=== PATIENT | male | born 1945 | race Caucasian/White ===

== ENCOUNTER 2017-11-15 07:09 | Outpatient (CLI) | payer MEDICARE, OTHER | END 2017-11-15 07:10 | disposition home or self-care (01) | LOC: BICMRI 07:09 | PROVIDERS: ATTEND Specialist | DX: S46.012A Strain of muscle(s) and tendon(s) of the rotator cuff of left shoulder, initial encounter (principal); S46.212A Strain of muscle, fascia and tendon of other parts of biceps, left arm, initial encounter; S43.082A Other subluxation of left shoulder joint, initial encounter; S43.432A Superior glenoid labrum lesion of left shoulder, initial encounter; M19.012 Primary osteoarthritis, left shoulder ==

== ENCOUNTER 2017-11-27 10:09 | Observation (INO) | payer MEDICARE, OTHER ==
[2017-11-27 11:04] LABS: #Lymphocytes 1.4 thou/uL (1.20-3.40); #Monocytes 1.3 thou/uL (0.11-0.59); #Neutrophils 6.4 thou/uL (1.40-6.50); %Basophils 0.5 % (0.0-1.0); %Eosinophils 0.1 % (0.0-10.0); %Lymphocytes 15.5 % (21.0-51.0); %Monocytes 14.4 % (0.0-10.0); %Neutrophils 69.6 % (42.0-75.0); Hemoglobin 11.9 g/dL (14.0-18.0); Mean Corpuscular HGB CONC 34.2 g/dL (32.0-36.0); Mean Corpuscular Hemoglobin 30.7 pg (27.0-31.0); Mean Corpuscular Volume 89.8 fl (80.0-94.0); Platelet Count 128 thou/uL (130-400); RBC Distribution Width 15.5 % (11.5-14.5); Red Blood Cell (RBC) Count 3.88 mill/uL (4.70-6.10); White Blood Cell (WBC) Count 9.1 thou/uL (4.8-10.8)
[2017-11-27 11:25] LABS: CKMB 1.7 ng/mL (0-6.6); Troponin I 0.051 ng/mL (< 0.028)
--- NOTE | 2017-11-27 11:25 | RAD ---
FRONTAL RADIOGRAPH CHEST: Date: 11-27-2017 Comparison: 10-04-03 History: Seizure-like activity, hypotension. FINDINGS: The heart and mediastinal contours are within normal limits. There is no pneumothorax, pleural fluid, focal consolidation or alveolar edema. There is atherosclerotic calcification of the aortic arch. Ca lcified nodes are noted in the left hilar region, evidence of prior granulomatous disease. IMPRESSION: No acute findings. POS: [facility]
[2017-11-27 11:32] LABS: ALT (SGPT) 24 U/L (8-55); AST (SGOT) 29 U/L (5-34); Albumin 3.6 g/dL (3.4-4.8); Alkaline Phosphatase 126 U/L (40-150); Anion Gap 14 mmol/L (10-20); BUN (Urea Nitrogen) 23 mg/dL (8.4-25.7); Bilirubin, Total 1.4 mg/dL (0.2-1.2); CK (CPK) 71 U/L (30-200); Calc. Creatinine Clearance 0 mL/min (70-130); Calcium 9.6 mg/dL (7.8-10.44); Carbon Dioxide 27 mmol/L (23-31); Chloride 94 mmol/L (98-107); Estimated GFR-MDRD 34; Globulin 3.1 g/dL (2.4-3.5); Glucose 131 mg/dL (83-110); Potassium 3.8 mmol/L (3.5-5.1); Protein, Total 6.7 g/dL (5.8-8.1); Sodium 131 mmol/L (136-145)
[2017-11-27 12:41] LABS: INR-International Normal Ratio 1.2; PTT 50.8 SEC (22.9-36.1)
--- NOTE | 2017-11-27 12:53 | CT ---
CT BRAIN WITHOUT CONTRAST: Indication: Seizure-like activity at home with hypotension. Comparison: None. FINDINGS: There is mild generalized cerebral atrophy. No definite acute infarct, hemorrhage, or hydrocephalus i s present. There is mild chronic small vessel white matter ischemic change. Septum pellucidum and thi rd ventricle are midline. There is prominent opacification of the visualized ethmoid air cells and sp henoid sinus with air fluid levels within the ethmoid air cells and sphenoid sinus. There is partial effusion seen involving the left mastoid air cells. IMPRESSION: 1. No acute intracranial abnormality. 2. Findings suspicious for acute sinusitis of the ethmoid air cells and sphenoid sinus. 3. Partial effusion involving the left mastoid air cells. POS: [facility]
[2017-11-27] MEDS ORDERED: Aspirin 325 MG TAB ONE (13:54)
[2017-11-27 14:40] LABS: Troponin I 0.036 ng/mL (< 0.028)
[2017-11-27] MEDS ORDERED: Albuterol Sulfate 2.5 mg/3 ml Neb NEB PRN (16:27)
--- NOTE | 2017-11-27 16:31 | HP ---
ATTENDING PHYSICIAN: Flaquito Weathers M.D. DATE OF SERVICE: 11/27/2017 REASON FOR ADMISSION: Fall. HISTORY OF PRESENT ILLNESS: This is a 72-year-old gentleman with a history of multiple medical probl ems to include COPD, NIDDM, and hypertension. He was brought in today after his witnessed a "fall." The is not at bedside and all the in formation was obtained from the . The patient states he does not remember having any chest pa in, shortness of breath or palpitations. The only thing he remembers that he woke up on the floor. The patient did not want to be taken by ambulance, but later he was brought into the hospital by his . The told me the thought he had a seizure. The patient denies any syncope before; however, he did recently fall on 11/13/2017 at which that time he injured his left shoulder and the MRI did show a rotator cuff tear. He does see Dr. Brown and denies any recent chest, arm or back pain, also denies any recent synco pal or near syncopal episode. PAST MEDICAL HISTORY: 1. COPD, followed by Dr. Plummer. 2. NIDDM. 3. Hypertension. 4. PVD. 5. BPH, followed by Dr. Schmidt. 6. History of Pernicious anemia. 7. History of thrombocytopenia. 8. Dyslipidemia. 9. Gout. 10. Arthritis. 11. GERD. 12. Hypothyroidism. PAST SURGICAL HISTORY: 1. PVD with stent in the left leg. 2. Hip replacement to the left in 2008. 3. Rotator cuff surgery in 1998. 4. Right knee surgery in 1995. 5. Back surgery in 1990. ALLERGIES: None. MEDICATIONS: 1. Levothyroxine 137 mcg daily. 2. Valsartan 160 mg every day. 3. Atenolol 25 mg every day. 4. Protonix 40 mg every day. 5. Cilostazol 100 mg 2 daily for leg cramps. 6. Diclofenac 50 mg 2 every day. 7. Allopurinol 300 mg every day. 8. Atorvastatin 10 mg every day. 9. Tamsulosin 0.4 every day. 10. Aspirin 81 mg every day. 11. [place] 10/325 as needed. SOCIAL HISTORY: He does smoke a pack a day and has done so for 50 years. FAMILY HISTORY: Positive for coronary artery disease in mother. REVIEW OF SYSTEMS: General: No weight gain or weight loss. Admits to weakness, fatigue, no fever o r chills. HEENT: No diplopia, amaurosis fugax, tinnitus, sore throat or hoarseness. Cardiovascular : No chest, arm or back pain. Pulmonary: Does have dyspnea from his COPD. The patient is coughing up some yellow sputum. GI: No GI bleed, does have constipation, no diarrhea. Genitourinary: No d ysuria, nocturia, oliguria or polyuria. Endocrine: No polyphagia, polydipsia or heat or cold intole mis. Musculoskeletal: Admits to arthralgias. No lupus or myopathy. Neurologic: No history of T IA or seizure. All systems are negative. PHYSICAL EXAMINATION: GENERAL: Pleasant gentleman who appears to be in no acute distress. VITAL SIGNS: Blood pressure 120/70, heart rate 58, respirations 26. He is afebrile. NECK: Supple with no increased JVP or carotid bruit. Carotid had good upstroke with no thyromegaly. COR: Elmer rhythm, no murmur. CHEST: Scattered wheezing. ABDOMEN: Soft, nontender with normoactive bowel sounds. No bruit or organomegaly. EXTREMITIES: No edema or cyanosis. Palpable pedal pulses. SKIN: There is no evidence of ulceration, lesion, or rash. NEURO: He is awake, alert, and oriented to person, place, and time. LABORATORY DATA: Showed a normal prolactin. His creatinine was 1.5. His sodium was 131. A CT of t he head was normal. ASSESSMENT: 1. Syncope, questionable etiology. 2. History of peripheral vascular disease with stent in the past. 3. Hypertension. 4. Hyperlipidemia. 5. Diabetes. 6. Chronic obstructive pulmonary disease. 7. Multiple medical problems. PLAN: 1. The patient will be placed in the hospital where echocardiogram and carotid Doppler will be obtai audra. 2. We will ask Dr. Brown to see the patient in consultation. 3. Tobacco use. 4. Possible early bronchitis. PLAN: 1. We will also start an antibiotic for possible early bronchitis. 2. We will follow up with lab in the morning. 3. Further recommendations per cardiology. The patient verbalized understanding and all questions answered to satisfaction.
[2017-11-27 17:54] VITALS: BMI 32.9
[2017-11-27 18:04] LABS: Troponin I 0.025 ng/mL (< 0.028)
--- NOTE | 2017-11-27 18:43 | CON ---
DATE OF CONSULTATION: 11/27/2017. REASON FOR CONSULTATION: Syncope. PRIMARY SENIOR INFORMATION SECURITY ANALYST: Dr. Brown. HISTORY OF PRESENT ILLNESS: Mr. Wisdom is a pleasant 72-year-old white gentleman who comes to the ospital for syncopal spell. He was at home sitting down and suddenly just noticed he rolled his eyes, started shaking like he was having a seizure then he went limp and went down to the floor. Robert anaya went to his side and was about to call 911 and when he came back and woke up and told her not to ca ll 911, attempted to try to get up again got on his four on both legs and arms and just had a second syncopal spell, fell forward. At that point, EMS was called. By the time they got to him, he was al ready awake. He just laid there awaiting for them to come in to bring him. He was taken to the ER a nd admitted for further evaluation. He has never had episodes like this before, but his tells steven anaya that recently she has noted that he is sitting on the couch and he falls asleep very quickly. Mr. Wisdom tells me that in the last few months he has noted episodes of feeling like he is closed to pa ssing out and he checks his blood pressure, has been about 60/40. He has also noted that at times hi s blood pressure goes up to the 180s/100s. He has never felt lightheaded when he stands up. PAST MEDICAL HISTORY: 1. Chronic obstructive pulmonary disease followed by Dr. Plummer. 2. Type 2 diabetes. 3. Hypertension. 4. Peripheral vascular disease with previous stenting on his left superficial femoral artery. 5. Benign prostatic hypertrophy. 6. Pernicious anemia. 7. Thrombocytopenia. 8. Hyperlipidemia. 9. Gout. 10. Arthritis. 11. Gastroesophageal reflux disease. 12. Hypothyroidism. PAST SURGICAL HISTORY: 1. Stent to the left leg. 2. Hip replacement. 3. Rotator cuff surgery. 4. Right knee surgery. 5. Back surgery. OUTPATIENT MEDICATIONS: 1. Levothyroxine 137 mcg a day. 2. Valsartan 160 mg a day. 3. Atenolol 25 mg a day. 4. Protonix 40 mg a day. 5. Cilostazol. 6. Diclofenac. 7. Allopurinol. 8. Atorvastatin 10 mg a day. 9. Tamsulosin. 10. Aspirin 81 a day. 11. Wayne p.r.n. ALLERGIES: No known drug allergies. SOCIAL HISTORY: Smokes a pack a day for the last 50 years, continues to smoke. FAMILY HISTORY: Positive for coronary artery disease in mother. REVIEW OF SYSTEMS: A 12 point review of systems is done and is all negative unless stated in the his tory of present illness. PHYSICAL EXAMINATION: VITAL SIGNS: Temperature 97.3, pulse 66, respiratory rate 20, satting 97% on 2 liters, blood pressur e 110/66. GENERAL: Awake, alert, oriented x3, in no distress. HEENT: Normocephalic. There is a small erythema on his forehead from the fall. NECK: Supple, no JVD. LUNGS: Clear with reduced breath sounds. CARDIOVASCULAR: S1, S2, no S3, S4 or murmurs. ABDOMEN: Soft, positive bowel sounds. EXTREMITIES: No edema. SKIN: Warm and dry. LABORATORY WORK: Reviewed. Hematology with a white count of 9.1, hemoglobin 11.9, hematocrit 34, pl atelet count of 128. Coags were unremarkable. Chemistry with a sodium of 131, potassium 3.8, chlori de of 94, carbon dioxide 27, anion gap of 14, BUN of 23, creatinine is 1.96, which is above his basel ine around 1.2 to 1.3. Troponin I was 0.05 and 0.03. CK-MB is normal. Prolactin was normal. Album in of 3.6. EKG was reviewed, normal sinus rhythm, no ischemic changes. CT of the brain was unremarkable. Chest x-ray was unremarkable. ASSESSMENT AND PLAN: 1. Syncope: Concern for cardiac arrhythmia. Continue to monitor her on telemetry. We will get an echocardiogram. He had one recently in May of this year, he was told everything looked fine. We wi ll also get a carotid ultrasound, agree with this. We will get a stress test, he has not had one in the last year he thinks and there is a concern for ischemic arrhythmias. We will do a Lexiscan MPI g iven his history of multiple joint issues and chronic obstructive pulmonary disease. 2. If all these studies are unremarkable, he will need to have placement of an event monitor as an o utpatient. I would favor an implantable loop recorder more than an event monitor. We will discuss w dannie Brown, his primary contact lens polisher to try to schedule this as an outpatient before he leaves . Thank you for letting us to participate in the care of your patient. We will continue to follow.
[2017-11-27] MEDS ORDERED: HYDROcodone/Acetaminophen 10/325 mg Tablet PO PRN (19:27)
[2017-11-27] MEDS: Cefdinir 300 MG CAP PO SCH (20:23)
[2017-11-27] MEDS: Cilostazol 100 MG TAB PO SCH (20:23)
[2017-11-27] MEDS ORDERED: Atorvastatin Calcium 10 MG TAB PO SCH (21:00)
[2017-11-27] MEDS ORDERED: Tamsulosin HCl 0.4 MG CAP PO SCH (21:00)
[2017-11-27] MEDS ORDERED: Allopurinol 300 MG TAB PO SCH (21:00)
--- NOTE | 2017-11-27 22:34 | ULT ---
EXAM: CAROTID ULTRASOUND 11/27/17 HISTORY: Syncope. COMPARISON: None. TECHNIQUE: Carney scale, color flow, doppler imaging with spectral waveform analysis performed of the carotid vert ebral arteries. FINDINGS: RIGHT CAROTID: Calcified atherosclerotic disease in the right carotid bulb. Peak systolic velocity of the common car otid artery is 98 cm/s. Peak systolic velocity of the internal carotid artery is 81 cm/s. Systolic IC A to CCA ratio is 0.83. LEFT CAROTID: Large focus of noncalcified plaque in the left carotid bifurcation and proximal internal carotid philip ry. Peak systolic velocity of the common carotid artery is 112.9 cm/s. Peak systolic velocity of the internal carotid artery is 94.8 cm/s. Systolic ICA to CCA ratio is 0.84. Antegrade flow in both vertebral arteries. IMPRESSION: No sonographic evidence of hemodynamically significant stenosis. However, there does appear to be a l arge focus of noncalcified plaque in the left carotid bifurcation and proximal left internal carotid artery. Better interrogation with CT angiogram of the neck is recommended. POS: [facility]
[2017-11-28] MEDS: Cefdinir 300 MG CAP PO SCH (05:27)
[2017-11-28] MEDS: Cilostazol 100 MG TAB PO SCH (05:28)
[2017-11-28 05:39] LABS: ALT (SGPT) 26 U/L (8-55); AST (SGOT) 28 U/L (5-34); Albumin 3.3 g/dL (3.4-4.8); Alkaline Phosphatase 117 U/L (40-150); Anion Gap 13 mmol/L (10-20); BUN (Urea Nitrogen) 23 mg/dL (8.4-25.7); Calc. Creatinine Clearance 75 mL/min (70-130); Calcium 9.3 mg/dL (7.8-10.44); Carbon Dioxide 26 mmol/L (23-31); Chloride 97 mmol/L (98-107); Estimated GFR-MDRD 55; Globulin 3.2 g/dL (2.4-3.5); Glucose 95 mg/dL (83-110); Potassium 3.5 mmol/L (3.5-5.1); Protein, Total 6.5 g/dL (5.8-8.1); Sodium 132 mmol/L (136-145)
[2017-11-28] MEDS ORDERED: Levothyroxine Sodium 112 MCG TAB PO SCH (06:00)
[2017-11-28] MEDS ORDERED: Levothyroxine Sodium 75 MCG TAB PO SCH (06:00)
[2017-11-28] MEDS ORDERED: Levothyroxine Sodium 25 MCG TAB PO SCH (06:00)
[2017-11-28] MEDS ORDERED: FLU VACC TS2017-18 (>65YR) 0.5 ML SYRINGE IM ONE (09:00)
[2017-11-28] MEDS ORDERED: Atenolol 25 MG TAB PO SCH (09:00)
[2017-11-28] MEDS ORDERED: Aspirin 325 MG TAB PO SCH (09:00)
[2017-11-28] MEDS ORDERED: Valsartan 80 MG TAB PO SCH ×2 (09:00)
[2017-11-28] MEDS ORDERED: Regadenoson 0.4 MG/5 ML SYRINGE ONE (11:13)
--- NOTE | 2017-11-28 11:34 | NM ---
CARDIAC SPECT: HISTORY: Syncope. COPD. Peripheral vascular disease. Hypertension. Diabetes. Dyslipidemia. Smoker. TECHNIQUE: A myocardial perfusion scan was performed using the single isotope one-day protocol with technetium 9 9m sestamibi, and 9 millicuries was injected intravenously for the rest exam, followed by 27 millicur ies for the stress study. Pharmacologic stress with Lexiscan was monitored and interpreted by Dr. Geneva galo. FINDINGS: Homogeneous tracer distribution is seen in the myocardial segments on stress and rest images without fixed or reversible defects. GATED SPECT LVEF: 56% WALL MOTION EXAM: Normal. IMPRESSION: Normal myocardial perfusion scan. POS: [facility]
[2017-11-28 12:27] VITALS: BP 128/60; TEMP 97.5
--- NOTE | 2017-11-29 11:22 | DIS ---
CHIEF COMPLAINT ON ADMISSION: A fall. He has had syncope of unsure etiology. He is known to have peripheral vascular disease and COPD, so he was placed in a telemetry bed for further evaluation. Cardiology was asked to see him in consultation. Dr. Raza saw him and saw a concern for possible cardiac arrhythmia. Continued him on telemetry. A stress test was ordered, the patient 's local general production laborer is Dr. Brown. A carotid Doppler study was obtained that showed no sonographic evidence of significant stenosis. An echocardiogram obtained showed an ejection fraction of 60-65%, mildly dilated left atrium, mild annular calcification, aortic valve is sclerotic with mild to moderate tricuspid regurgitation and moderate pulmonic regurgitation. A Cardiolite stress test done on 11/27/2017 showed no definitive diagnosis such that a stress nuclear test followed up on 11/28/2017 showed normal wall motion, normal myocardial scan and the patient was then able to be discharged home that day for further workup with Dr. Brown on outpatient basis. DISCHARGE DIAGNOSES: 1. Syncope of unknown etiology, 2. peripheral vascular disease, 3. hypertension, 4. hyperlipidemia, 5. diabetes and 6. chronic obstructive pulmonary disease. He is discharged in stable condition. The time required to check the chart, evaluate the patient, answer all his questions, reconcile his medication and prepare the chart for dictation and discharge came to 45 minutes. He will be continued on daily 81 mg aspirin and his other routine medications. He is discharged in stable condition. F/u will be in 1-[address] [facility]
--- NOTE | 2017-12-03 10:46 | STRESS ---
Acquisition Time: 2017-11-28 09:16:02 Total Exercise Time: 00:01:00 Test Indications: Syncope Medications: Protocol: LEXISCAN Max HR: 080 BPM 54% of Pred: 146 BPM Max BP: 122/060 mmHG Max Work Load: 1.0 METS RESTING ECG: SINUS BRADYCARDIA AT 56 BPM WITH NON-SPECIFIC T-WAVE CHANGES SYMPTOMS: DYSPNEA NORMAL BP RESPONSE ECTOPY: RARE PVC'S ECG STRESS: NO SIGNIFICANT CHANGES INTERPRETATION: AWAIT NUCLEAR IMAGES FOR DEFINITIVE DIAGNOSIS Confirmed by ZAID PENA ([id number]), social media editor JIM HUFFMAN ([id number]) on 12/03/2017 10:45:49 AM Referred By: MD Naseem PALOMO Confirmed By:ZAID PENA
--- NOTE | 2018-01-05 19:20 | EKG ---
Test Reason : Blood Pressure : / mmHG Vent. Rate : 059 BPM Atrial Rate : 059 BPM P-R Int : 132 ms QRS Dur : 086 ms QT Int : 446 ms P-R-T Axes : 075 052 071 degrees QTc Int : 441 ms Sinus bradycardia Otherwise normal ECG Artifact Confirmed by ALPHONSO HERR, HIGINIO Estrada ([id number]), editorial intern DEV BLANKENSHIP ([id number]) on 01/05/2018 7:20:27 PM Referred By: Confirmed By:HIGINIO WERNER MD
== END 2017-11-28 14:26 | disposition home or self-care (01) ==
LOC: ERS 10:09 → 2SW 13:58
PROVIDERS: ADMIT Specialist; ATTEND Specialist
DX: R55 Syncope and collapse (principal); I10 Essential (primary) hypertension; E78.5 Hyperlipidemia, unspecified; J44.9 Chronic obstructive pulmonary disease, unspecified; N40.0 Benign prostatic hyperplasia without lower urinary tract symptoms; M10.9 Gout, unspecified; M19.90 Unspecified osteoarthritis, unspecified site; K21.9 Gastro-esophageal reflux disease without esophagitis; E03.9 Hypothyroidism, unspecified; E11.51 Type 2 diabetes mellitus with diabetic peripheral angiopathy without gangrene; F17.210 Nicotine dependence, cigarettes, uncomplicated; Z79.82 Long term (current) use of aspirin; Z79.1 Long term (current) use of non-steroidal anti-inflammatories (NSAID); Z95.828 Presence of other vascular implants and grafts; Z96.642 Presence of left artificial hip joint; Z98.890 Other specified postprocedural states; Z91.81 History of falling
CPT/HCPCS: 70450; 71045; 78452; 80053 ×2; 82550; 82553; 84146; 84443; 84484 ×2; 85025; 85610; 85730; 86850 ×2; 86900; 86901; 87804 ×2; 93005; 93017; 93306; 93880; 94760; 96360; 99285; 99406; A9500; G0378; 36415; J2785

== ENCOUNTER 2018-05-23 10:32 | Outpatient (CLI) | payer MEDICARE, OTHER ==
[2018-05-23 12:05] LABS: #Basophils 0.1 thou/uL (0.0-0.2); #Lymphocytes 1.6 thou/uL (1.20-3.40); #Monocytes 0.5 thou/uL (0.11-0.59); #Neutrophils 1.8 thou/uL (1.40-6.50); %Basophils 1.6 % (0.0-1.0); %Eosinophils 0.6 % (0.0-10.0); %Lymphocytes 39.4 % (21.0-51.0); %Monocytes 11.7 % (0.0-10.0); %Neutrophils 46.6 % (42.0-75.0); Bilirubin Negative (Negative); Blood, Urine Negative (Negative); Clarity CLEAR (Clear); Glucose, Urine (Dipstick) Negative (Negative); Hemoglobin 12.8 g/dL (14.0-18.0); Leukocyte Negative (Negative); Mean Corpuscular HGB CONC 33.4 g/dL (32.0-36.0); Mean Corpuscular Hemoglobin 29.7 pg (27.0-31.0); Mean Corpuscular Volume 88.8 fL (78.0-98.0); Mean Platelet Volume 10.4 fL (7.4-10.4); Nitrite Negative (Negative); Platelet Count 124 thou/uL (130-400); Protein, Urine (Dipstick) Negative (Neg-Trace); RBC Distribution Width 16.2 % (11.5-14.5); Red Blood Cell (RBC) Count 4.32 mill/uL (4.70-6.10); Specific Gravity, Urine 1.017 (1.002-1.036); Urobilinogen 0.2 mg/dL (0.2-1.0); White Blood Cell (WBC) Count 3.9 thou/uL (4.8-10.8); pH, Urine 5.5 (5.0-9.0)
[2018-05-23 12:06] LABS: Bacteria/HPF None Seen HPF (None Seen); Hyaline Casts/LPF 7-10 HYALINE CAST LPF (0-3 Hyaline); Pathc Cast-AUWi Flag 2.47 (0-2.49); RBC/HPF 0-3 HPF (0-3); Squamous Epithelial 0-3 HPF (0-3); WBC/HPF 0-3 HPF (0-3)
[2018-05-23 12:13] LABS: INR-International Normal Ratio 1.1; Prothrombin Time 14.3 SEC (12.0-14.7)
--- NOTE | 2018-05-23 12:31 | RAD ---
TWO VIEWS CHEST: Comparison: 11-27-17 History: Pre-operative radiograph. FINDINGS: Two views of the chest show normal sized cardiomediastinal silhouette. There is no evidence of consol idation, mass, or pleural effusion. The bones are unremarkable. IMPRESSION: No evidence of acute cardiopulmonary disease. POS: [facility]
[2018-05-23 12:43] LABS: Anion Gap 12 mmol/L (10-20); BUN (Urea Nitrogen) 18 mg/dL (8.4-25.7); Calc. Creatinine Clearance 0 mL/min (70-130); Calcium 9.5 mg/dL (7.8-10.44); Carbon Dioxide 27 mmol/L (23-31); Chloride 103 mmol/L (98-107); Estimated GFR-MDRD 60; Glucose 106 mg/dL (83-110); Potassium 4.6 mmol/L (3.5-5.1); Sodium 137 mmol/L (136-145)
== END 2018-05-23 10:33 | disposition home or self-care (01) ==
LOC: LABBT 10:32
PROVIDERS: ATTEND Orthopaedic Surgery
DX: Z01.818 Encounter for other preprocedural examination (principal); M17.12 Unilateral primary osteoarthritis, left knee
CPT/HCPCS: 71046; 80048; 81001; 85025; 85610; 85730; 86850; 86870; 86900; 86901; 86905; 87081; 93005; 93010

== ENCOUNTER 2018-05-28 07:39 | Inpatient (IN) | payer MEDICARE, OTHER ==
[2018-05-23 11:01] VITALS: BMI 29.2
[2018-05-28] MEDS ORDERED: Sodium Chloride 0.9% 100 ML ONE (08:27)
[2018-05-28] MEDS ORDERED: CEFAZOLIN/Water 2 GM/20 ML SYRINGE ONE (08:27)
[2018-05-28] MEDS ORDERED: Vancomycin HCl 1.5 GM in Sodium Chloride 0.9% 250 ML 300 ML IVPB SCH (08:45)
[2018-05-28] MEDS ORDERED: Promethazine HCl 25 MG/ML VIAL IM PRN ×3 (08:51→10:38)
[2018-05-28] MEDS ORDERED: Acetaminophen 325 MG TAB PO PRN (08:51)
[2018-05-28] MEDS ORDERED: traMADol HCl 50 MG TAB PO PRN ×2 (08:51→09:32)
[2018-05-28] MEDS ORDERED: Fentanyl 100 MCG/2 ML VIAL SLOW IVP PRN ×2 (08:51)
[2018-05-28] MEDS ORDERED: HYDROcodone/Acetaminophen 10/325 mg Tablet PO PRN ×2 (08:51)
[2018-05-28] MEDS ORDERED: Ondansetron HCl/PF 4 MG/2 ML Vial IVP PRN ×3 (08:51→10:38)
[2018-05-28] MEDS ORDERED: diphenhydrAMINE 25 MG CAP PO PRN (08:51)
[2018-05-28] MEDS ORDERED: Zolpidem Tartrate 5 MG TAB PO PRN ×2 (08:51→09:32)
[2018-05-28] MEDS ORDERED: Midazolam HCl 2 mg/2 ml Vial ONE (08:54)
[2018-05-28] MEDS ORDERED: CEFAZOLIN/Water 2 GM/20 ML SYRINGE SLOW IVP SCH (09:00)
[2018-05-28] MEDS ORDERED: Cilostazol 100 MG TAB PO SCH (09:00)
[2018-05-28] MEDS ORDERED: Ketorolac Tromethamine 30 MG/ML VIAL IVP PRN (09:32)
[2018-05-28] MEDS ORDERED: Ropivacaine HCl/PF 250 ML in Premix Bag 1 BAG NERVE BLCK SCH (09:32)
[2018-05-28] MEDS ORDERED: Fentanyl 100 MCG/2 ML VIAL IV PRN (09:34)
[2018-05-28] MEDS ORDERED: Promethazine HCl 25 MG/ML VIAL SLOW IVP PRN (10:38)
[2018-05-28] MEDS ORDERED: Ropivacaine 0.5% HCl/PF (150 MG/30 ML VIAL) ONE (11:19)
[2018-05-28] MEDS ORDERED: Bupivacaine 0.25% HCL 30 ML VIAL ONE (11:19)
[2018-05-28] MEDS ORDERED: PROPOFOL 200 MG/20 ML VIAL ONE (11:42)
[2018-05-28] MEDS ORDERED: Ondansetron HCl/PF 4 MG/2 ML Vial ONE (11:42)
[2018-05-28] MEDS ORDERED: Lidocaine 1% PF 5 ML VIAL ONE (11:42)
[2018-05-28] MEDS ORDERED: ePHEDrine/0.9% NaCl/PF SYRINGE 50 mg/10 ml ONE (11:42)
--- NOTE | 2018-05-28 12:12 | OP ---
PREOPERATIVE DIAGNOSIS: Left knee arthritis. POSTOPERATIVE DIAGNOSIS: Left knee arthritis. SURGEON: Tung Burns M.D. METER ENGINEER: Dennis Gutiérrez PA-C. BLOOD LOSS: 200 mL. SPECIMEN: None. DRAINS: None. COMPLICATIONS: None. PROCEDURE PERFORMED: Left total knee arthroplasty using [place] Triathlon 5 femur, 5 tibia, 9 mm CS X3 polyethylene and A32 patella. TOURNIQUET TIME: Zero. PROCEDURE IN DETAIL: After informed consent was obtained in the preoperative holding area. The abhinav ent was taken to the operative suite where general anesthesia was induced. Once adequate level of ge neral anesthesia was obtained, the patient was positioned and a well-padded tourniquet was placed carlos und the left proximal thigh. The left lower extremity was then prepped and draped in the usual steri le fashion. Prior to exsanguination, a time out was called and all members of the surgical team agre ed upon site, surgeon, and patient. The extremity was then exsanguinated and the tourniquet was rais ed. A midline longitudinal incision was then made directly over the patella extending two fingerbrea dths above the superior pole of the patella and two fingerbreadths inferior to the inferior patellar pole of the patella. Deeper subcutaneous layers were dissected sharply and local bleeding was contro lled with Bovie electrocautery. A quad tendon longitudinal split was then made sharply and a median parapatellar arthrotomy was carried out both sharp and with Bovie electrocautery, carried down to one fingerbreadth medial to the tibial tubercle. The knee was then placed into flexion and the patella was everted nicely, and a copious fat pad ectomy was performed allowing for greater exposure of the t ibia. The computer-assisted distal femoral fiducial was then placed and pinned firmly, and the dista l femoral cutting guide was pinned firmly into place. The oscillating saw was then used to remove th e appropriate amount of bone. The 4-in-1 cutting block was then placed on the distal femur and the o scillating saw was used to remove the appropriate amount of bone off of the anterior, posterior, and chamfer cuts. After completion of bone cuts, the anterior cruciate ligament was resected sharply and the posterior cruciate ligament retractor was placed and the tibia was subluxed for better exposure. Partial meniscectomies were carried out, and the tibial computer-assisted fiducial was pinned, and the cutting guide was placed. Oscillating saw was then used to remove the bone with Hohmann retracto rs used to take care and protect the collateral ligaments. After the tibial resection was performed, a laminar alliances consultant was placed in between the freshened bone cuts. The knee placed at 90 degrees and further bilateral meniscectomies were carried out, and the curved osteotome and curettage was used t o remove any excess bone spurs in the posterior compartment. The trial femoral component, tibial bas eplate were placed with the appropriate polyethylene trial insert with an appropriate polyethylene sp acer and patellar button. The knee was taken through full range of motion with flexion and extension from 0-90 degrees and patellar broach squarely in the trochlea without any squinting or subluxation noted. The knee was also stable to varus and valgus stressing at 0, 15, 45, and 90 degrees of flexio n. The drawer was negative. All trial components were then removed and the keel punch was used to p rovide the appropriate defect in the tibia with a mallet. The freshened bone cuts were copiously irr igated with pulsatile lavage of about 1-1/2 liters to remove all excess debris. The freshened bone c uts were then dried and with suction and lap sponge. The knee was placed in flexion and retractors w ere placed to provide access to all bone cuts. Tobramycin impregnated methyl methacrylate cement was then placed on the freshened bone cuts and implants which were malleted firmly into place. Curettag e and [place] elevators were used to remove any excess bone cement. The knee was placed into full exte nsion and the patellar button was placed under compression, and the cement was allowed to cure. Once completed, the components were again taken through full range of motion and copious irrigation of th e knee was carried out with another liter of normal saline. All components were inspected fully with full range of motion and varus and valgus stressing. There was no laxity noted and full extension wa s observed clinically. Primary closure was accomplished with #2 interrupted Vicryl stitch of the art hrotomy defect. This was oversewn with a #2 running Quill barbed stitch. The gravitational platelet system was then injected into the arthrotomy prior to closure. The subcutaneous layer was then clos ed with a running 0 barbed Monocryl stitch and skin closure accomplished with a running subcuticular 3-0 Monocryl barbed Quill stitch and augmented with cement on the skin. Tourniquet was lowered. Goo d spontaneous return of distal pulses was noted clinically and a sterile dressing was applied to the incision. The procedure was terminated without any complications. The patient was awakened in the o perative suite and the tourniquet was removed, and the patient was taken to the recovery room in stab le condition.
--- NOTE | 2018-05-28 12:59 | RAD ---
LEFT KNEE 2 VIEWS: HISTORY: Total knee arthroplasty, postop exam. FINDINGS/IMPRESSION: There are postop changes of recent total knee arthroplasty in good position and alignment. Soft tiss ue air is present. There are vascular calcifications and stent in the thigh. POS: [facility]
[2018-05-28] MEDS ORDERED: Ketorolac Tromethamine 30 MG/ML VIAL IM SCH (14:00)
[2018-05-28] MEDS: HYDROcodone/Acetaminophen 10/325 mg Tablet PO PRN (14:26)
[2018-05-28] MEDS: Atenolol 25 MG TAB PO SCH (14:35)
[2018-05-28] MEDS: Aspirin 81 mg Enteric Coated Tablet PO SCH ×2 (14:35→20:26)
[2018-05-28] MEDS: Valsartan 80 MG TAB PO SCH (14:36)
[2018-05-28] MEDS: Sodium Chloride 0.9% 1,000 ML IV SCH ×2 (14:36→15:18)
[2018-05-28] MEDS: CEFAZOLIN/Water 2 GM/20 ML SYRINGE SLOW IVP SCH (18:35)
[2018-05-28] MEDS: Allopurinol 300 MG TAB PO SCH (20:26)
[2018-05-28] MEDS: Atorvastatin Calcium 10 MG TAB PO SCH (20:26)
[2018-05-29] MEDS: HYDROcodone/Acetaminophen 10/325 mg Tablet PO PRN ×4 (01:48→21:54)
[2018-05-29] MEDS: CEFAZOLIN/Water 2 GM/20 ML SYRINGE SLOW IVP SCH (01:49)
[2018-05-29] MEDS: Sodium Chloride 0.9% 1,000 ML IV SCH ×2 (03:22→09:53)
[2018-05-29] MEDS: traMADol HCl 50 MG TAB PO PRN (05:14)
[2018-05-29] MEDS: Levothyroxine Sodium 125 MCG TAB PO SCH (05:14)
[2018-05-29 06:21] LABS: Hemoglobin 10.6 g/dL (14.0-18.0); Mean Corpuscular HGB CONC 33.5 g/dL (32.0-36.0); Mean Corpuscular Hemoglobin 30.1 pg (27.0-31.0); Mean Corpuscular Volume 89.8 fL (78.0-98.0); Mean Platelet Volume 11.9 fL (7.4-10.4); Platelet Count 111 thou/uL (130-400); RBC Distribution Width 15.8 % (11.5-14.5); Red Blood Cell (RBC) Count 3.53 mill/uL (4.70-6.10)
--- NOTE | 2018-05-29 08:04 | PRG ---
DATE OF SERVICE: 05/29/2018. SUBJECTIVE: Nirav is a 72-year-old male postop day #1 left total knee arthroplasty. He has no com plaints. He is resting comfortably. OBJECTIVE: VITAL SIGNS: Temperature 98.1, pulse 65, respiratory rate 16, blood pressure 120/66. GENERAL: He is alert and oriented to person, place, time, and situation. Grossly nonfocal. EXTREMITIES: Incision is clean and closed. No strike through. He is neurovascularly intact in the involved extremity. Hemoglobin and hematocrit 10.6 and 31.7. ASSESSMENT: 1. A 72-year-old male postop day #1 left total knee arthroplasty, doing well. 2. Mild postoperative asymptomatic hemorrhagic anemia. PLAN: Continue current care and discharge home tomorrow.
[2018-05-29] MEDS: Ferrous Gluconate 324 MG TAB PO SCH ×2 (08:21→16:55)
[2018-05-29] MEDS: Senokot S 8.6-50 MG TAB PO SCH ×2 (08:22→20:24)
[2018-05-29] MEDS: Multivitamin W/ Minerals 1 TAB PO SCH (08:22)
[2018-05-29] MEDS: Valsartan 80 MG TAB PO SCH (08:22)
[2018-05-29] MEDS: Atenolol 25 MG TAB PO SCH (08:22)
[2018-05-29] MEDS: Aspirin 81 mg Enteric Coated Tablet PO SCH ×2 (08:22→20:24)
[2018-05-29] MEDS: Allopurinol 300 MG TAB PO SCH (20:24)
[2018-05-29] MEDS: Atorvastatin Calcium 10 MG TAB PO SCH (20:25)
[2018-05-30] MEDS: Sodium Chloride 0.9% 1,000 ML IV SCH ×2 (00:28→11:18)
[2018-05-30] MEDS: Levothyroxine Sodium 125 MCG TAB PO SCH (05:40)
[2018-05-30 06:37] LABS: Hemoglobin 9.7 g/dL (14.0-18.0); Mean Corpuscular HGB CONC 35.1 g/dL (32.0-36.0); Mean Corpuscular Volume 88.2 fL (78.0-98.0); Mean Platelet Volume 10.4 fL (7.4-10.4); Platelet Count 87 thou/uL (130-400); RBC Distribution Width 15.5 % (11.5-14.5); Red Blood Cell (RBC) Count 3.12 mill/uL (4.70-6.10); White Blood Cell (WBC) Count 7.4 thou/uL (4.8-10.8)
[2018-05-30] MEDS: Senokot S 8.6-50 MG TAB PO SCH (08:24)
[2018-05-30] MEDS: Atenolol 25 MG TAB PO SCH (08:25)
[2018-05-30] MEDS: Ferrous Gluconate 324 MG TAB PO SCH (08:25)
[2018-05-30] MEDS: Valsartan 80 MG TAB PO SCH (08:26)
[2018-05-30] MEDS: Aspirin 81 mg Enteric Coated Tablet PO SCH (08:26)
[2018-05-30] MEDS: Multivitamin W/ Minerals 1 TAB PO SCH (08:26)
[2018-05-30] MEDS ORDERED: Cilostazol 100 MG TAB PO SCH (09:00)
[2018-05-30] MEDS: traMADol HCl 50 MG TAB PO PRN (11:14)
[2018-05-30 11:56] VITALS: BP 140/69; TEMP 97.6
[2018-05-30] MEDS: HYDROcodone/Acetaminophen 10/325 mg Tablet PO PRN (14:13)
== END 2018-05-30 14:20 | disposition home or self-care (01) | DRG 470 ==
LOC: SDC 07:39 → SURG B 13:04
PROVIDERS: ADMIT Orthopaedic Surgery; ATTEND Orthopaedic Surgery
PROC: 0SRD0J9 Replacement of Left Knee Joint with Synthetic Substitute, Cemented, Open Approach (ICD-10-PCS; principal; 2018-05-28)
DX: M17.12 Unilateral primary osteoarthritis, left knee (principal); D62 Acute posthemorrhagic anemia
CPT/HCPCS: 36415; 85027; 86850; 86900; 86901; 86922; C1713; C1776; G8978-GP-CK; G8979-GP-CI; J2001; J2250; J2405; J2704; J2795; J3010; J3370; J7050; S0020

== ENCOUNTER 2018-07-11 08:42 | Outpatient (CLI) | payer MEDICARE, OTHER ==
[2018-07-11 10:21] LABS: Hemoglobin 10.7 g/dL (14.0-18.0); Mean Corpuscular HGB CONC 35.4 g/dL (32.0-36.0); Mean Corpuscular Hemoglobin 30.6 pg (27.0-31.0); Mean Corpuscular Volume 86.5 fL (78.0-98.0); Mean Platelet Volume 11.1 fL (7.4-10.4); Platelet Count 118 thou/uL (130-400); RBC Distribution Width 15.3 % (11.5-14.5); Red Blood Cell (RBC) Count 3.51 mill/uL (4.70-6.10); White Blood Cell (WBC) Count 3.2 thou/uL (4.8-10.8)
[2018-07-11 10:31] LABS: Anion Gap 10 mmol/L (10-20); BUN (Urea Nitrogen) 17 mg/dL (8.4-25.7); Calc. Creatinine Clearance 0 mL/min (70-130); Calcium 9.3 mg/dL (7.8-10.44); Carbon Dioxide 28 mmol/L (23-31); Chloride 104 mmol/L (98-107); Estimated GFR-MDRD 75; Glucose 125 mg/dL (83-110); Potassium 3.5 mmol/L (3.5-5.1); Sodium 138 mmol/L (136-145)
[2018-07-11 12:45] LABS: Band 6 % (5-11); Burr Cells SLIGHT = 2-5 cells (100X) (0-1/hpf); Eosinophils 2 % (0-10); Lymphocytes 41 % (21-51); MDiff Complete? YES; Monocytes 6 % (0-10); Neutrophil 38 % (42-75); Ovalocytes MODERATE= 6-15 cells (100X) (0-1/hpf); PLT Morphology Comment Appears Decreased; Polychromasia SLIGHT = 2-3 cells (100X) (0-2/hpf); Reactive Lymphocytes 7 % (0-10)
[2018-07-11 14:27] LABS: Bilirubin Small (Negative); Blood, Urine Negative (Negative); Clarity CLEAR (Clear); Glucose, Urine (Dipstick) Negative (Negative); Leukocyte Negative (Negative); Nitrite Negative (Negative); Protein, Urine (Dipstick) Negative (Neg-Trace); Specific Gravity, Urine 1.026 (1.002-1.036); pH, Urine 5.5 (5.0-9.0)
[2018-07-11 14:30] LABS: Bacteria/HPF None Seen HPF (None Seen); Hyaline Casts/LPF 0-3 HYALINE CAST LPF (0-3 Hyaline); Pathc Cast-AUWi Flag 0.14 (0-2.49); Squamous Epithelial 0-3 HPF (0-3); WBC/HPF 0-3 HPF (0-3)
== END 2018-07-11 08:43 | disposition home or self-care (01) ==
LOC: LABBT 08:42
PROVIDERS: ATTEND Orthopaedic Surgery Hand Surgery
DX: Z01.812 Encounter for preprocedural laboratory examination (principal); M85.68 Other cyst of bone, other site
CPT/HCPCS: 80048; 81001; 85025

== ENCOUNTER 2018-08-06 12:09 | Outpatient (CLI) | payer MEDICARE, OTHER | END 2018-08-06 12:10 | disposition home or self-care (01) | LOC: CP 12:09 | PROVIDERS: ATTEND Internal Medicine | DX: J44.9 Chronic obstructive pulmonary disease, unspecified (principal); G47.33 Obstructive sleep apnea (adult) (pediatric) | CPT/HCPCS: 94060; 94727; 94729 ==

== ENCOUNTER 2018-09-04 10:09 | Day surgery (SDC) | payer MEDICARE, OTHER ==
[2018-09-03 12:03] VITALS: BMI 28.4
[2018-09-04 11:39] LABS: Hemoglobin 12.2 g/dL (14.0-18.0)
[2018-09-04 12:00] LABS: Anion Gap 12 mmol/L (10-20); BUN (Urea Nitrogen) 17 mg/dL (8.4-25.7); Calc. Creatinine Clearance 91 mL/min (70-130); Calcium 9.9 mg/dL (7.8-10.44); Carbon Dioxide 27 mmol/L (23-31); Chloride 105 mmol/L (98-107); Estimated GFR-MDRD 83; Glucose 96 mg/dL (83-110); Potassium 4.6 mmol/L (3.5-5.1); Sodium 139 mmol/L (136-145)
[2018-09-04] MEDS ORDERED: EPINEPHrine 1 MG/ML AMP ONE (13:42)
[2018-09-04] MEDS ORDERED: Fentanyl 100 MCG/2 ML VIAL ONE (13:47)
[2018-09-04] MEDS ORDERED: Midazolam HCl 2 mg/2 ml Vial ONE (13:47)
[2018-09-04] MEDS ORDERED: Dexamethasone 20 MG/5 ML VIAL ONE (17:40)
[2018-09-04] MEDS ORDERED: PROPOFOL 200 MG/20 ML VIAL ONE (17:40)
[2018-09-04] MEDS ORDERED: Succinylcholine Chloride 20 MG/ML 10 ml SYRINGE FS ONE (17:40)
[2018-09-04] MEDS ORDERED: Ondansetron HCl/PF 4 MG/2 ML Vial ONE (17:40)
--- NOTE | 2018-09-05 13:41 | OP ---
DATE OF PROCEDURE: 09/04/2018 PREOPERATIVE DIAGNOSES: 1. Dysphonia. 2. Bilateral vocal cord polyps. POSTOPERATIVE DIAGNOSES: 1. Dysphonia. 2. Bilateral vocal cord polyps. PROCEDURE: Microsuspension direct laryngoscopy with biopsies. SURGEON: Valeriy Mabry M.D. ESTIMATED BLOOD LOSS: 0 mL. COMPLICATIONS: None. ANESTHESIA: GETA with Pia jet ventilation tube. DESCRIPTION OF PROCEDURE: The patient was taken to the operating room and placed supine on the table . Pia jet ventilation tube was placed into the trachea by Anesthesia staff. Head of bed was tu rned 90 degrees. Shoulder roll was placed and the Dedo laryngoscope was used to examine the oral cav ity and oropharynx, which was noted to be within normal limits. Following this, examination of the p ostcricoid mucosa was clear. Piriform sinuses, vallecula, and epiglottis were all within normal limi ts. Following this, patient was placed in suspension, exposing the laryngeal inlet. Subglottic area was free of lesions. There were large polyps in the anterior half of the vocal cords bilaterally. Using the microforceps and microscissors, these polyps were removed sparing as much mucosa lining as possible. Following this, they were sent for pathological analysis. A small ephedrine soaked pledge t was placed on the bilateral vocal cords bilaterally for 3 minutes. The patient tolerated the proce dure well.
== END 2018-09-04 15:54 | disposition home or self-care (01) ==
LOC: SDC 10:09
PROVIDERS: ATTEND Otolaryngology Plastic Surgery within the Head & Neck
PROC: 0CBV8ZX Excision of Left Vocal Cord, Via Natural or Artificial Opening Endoscopic, Diagnostic (ICD-10-PCS; principal; 2018-09-04)
PROC: 0CBT8ZX Excision of Right Vocal Cord, Via Natural or Artificial Opening Endoscopic, Diagnostic (ICD-10-PCS; 2018-09-04)
DX: J38.1 Polyp of vocal cord and larynx (principal); E78.00 Pure hypercholesterolemia, unspecified; E03.9 Hypothyroidism, unspecified; I25.10 Atherosclerotic heart disease of native coronary artery without angina pectoris; I73.9 Peripheral vascular disease, unspecified; Z79.899 Other long term (current) drug therapy
CPT/HCPCS: 36415; 80048; 85014; 85018; 88305; 93005; 93010; J0171; J1100; J2250; J2405; J2704; J3010

== ENCOUNTER 2018-11-18 19:50 | Emergency (ER) | payer MEDICARE, OTHER ==
[2018-11-18] MEDS ORDERED: predniSONE 20 MG TAB ONE (20:42)
[2018-11-18] MEDS ORDERED: diphenhydrAMINE 50 MG CAP ONE (20:42)
[2018-11-18] MEDS ORDERED: Famotidine 20 MG TAB ONE (20:42)
== END 2018-11-18 21:36 | disposition home or self-care (01) ==
LOC: ERS 19:50
DX: L50.0 Allergic urticaria (principal); I10 Essential (primary) hypertension; F17.210 Nicotine dependence, cigarettes, uncomplicated
CPT/HCPCS: 99283; J7506

== ENCOUNTER 2019-01-10 08:11 | Outpatient (CLI) | payer MEDICARE, OTHER ==
--- NOTE | 2019-01-10 09:47 | MRI ---
MRI LUMBAR SPINE WITHOUT CONTRAST: HISTORY: L3 radicular pain. Low back pain for two years. COMPARISON: 04/06/2015 TECHNIQUE: Multiplanar, multisequence MR images were obtained of the lumbar spine without contrast. FINDINGS: Generalized disk desiccation is seen. There is stable grade 1 anterolisthesis of L4 on L5. The conu s medullaris terminates normally at L1. Prevertebral and paraspinal soft tissues are unremarkable. T12-L1: Unremarkable. L1-L2: Unremarkable. L2-L3: A small disk osteophyte complex is seen. Moderate bilateral posterior facet arthrosis. Mild central canal stenosis. Moderate to severe bilateral neural foraminal stenosis. L3-L4: A moderate disk osteophyte complex is seen. Severe bilateral posterior facet arthrosis. Mod erate to severe central canal stenosis. There is significant intrusion involving the central canal b y the posterior facets, and there appears to be a 1.2 cm multilobulated synovial cyst in the central canal. Severe right and moderate to severe left neural foraminal stenosis. L4-L5: A moderate disk osteophyte complex is seen. Severe bilateral posterior facet arthrosis. Sev ere central canal stenosis, just above the disk space. This is predominantly secondary to posterior facet disease from both this level and the level above. Moderate bilateral neural foraminal stenosis . L5-S1: Unremarkable. IMPRESSION: Degenerative changes of the lumbar spine, as above, greatest at L3-L4 and L4-L5. POS: [facility]
== END 2019-01-10 08:12 | disposition home or self-care (01) ==
LOC: BICMRI 08:11
PROVIDERS: ATTEND Specialist
DX: M47.26 Other spondylosis with radiculopathy, lumbar region (principal)
CPT/HCPCS: 72148

== ENCOUNTER 2019-02-18 14:39 | Outpatient (CLI) | payer MEDICARE, OTHER ==
--- NOTE | 2019-02-18 15:08 | RAD ---
FLumbar spine: 3 views. Lateral views obtained with neutral flexion and extension. INDICATIONS: Lumbar radiculopathy. Low back pain. FINDINGS: Lumbar vertebra maintain normal height. Degenerative changes seen throughout the lumbar spine. Modera te osteophytes are seen from all levels. Prominent facet hypertrophy is seen in the lower lumbar spin e. Slight posterior listhesis at L2-3 measured at 3 mm. Anterolisthesis at L3-4 measured at 5 mm. Anterolisthesis at L4-4-5 is grade 1 measured at 12 mm neutral. This appears to exacerbate with flexi on. Aorta is calcified. There is a saccular aneurysmal dilatation of the lower abdominal aorta measuring 4.0 cm. IMPRESSION: 1. Degenerative changes lumbar spine with anterolisthesis as described 2. Abdominal aortic aneurysm
== END 2019-02-18 14:40 | disposition home or self-care (01) ==
LOC: TBSIIMAG 14:39
PROVIDERS: ATTEND Neurological Surgery
DX: M47.26 Other spondylosis with radiculopathy, lumbar region (principal); M43.16 Spondylolisthesis, lumbar region; M48.062 Spinal stenosis, lumbar region with neurogenic claudication; I71.4 Abdominal aortic aneurysm, without rupture
CPT/HCPCS: 72100

== ENCOUNTER 2019-03-07 10:23 | Outpatient (CLI) | payer MEDICARE, OTHER ==
--- NOTE | 2019-03-07 10:46 | RAD ---
EXAM: Chest 2 views: HISTORY: COPD COMPARISON: 05/23/2018 FINDINGS: Stable old granulomatous disease. Heart size is within normal limits. The lungs demonstrate no significant acute process. Atherosclerotic changes of the aorta. No confluent pneumonia, overt edema, pleural effusion, pneumothorax, or other significant acute proce ss. IMPRESSION: Stable old granulomatous disease. Atherosclerosis of the aorta. No acute intrathoracic disease.
== END 2019-03-07 10:24 | disposition home or self-care (01) ==
LOC: BICRAD 10:23
PROVIDERS: ATTEND Specialist
DX: J44.9 Chronic obstructive pulmonary disease, unspecified (principal); I70.0 Atherosclerosis of aorta
CPT/HCPCS: 71046

== ENCOUNTER 2019-04-29 00:12 | Outpatient (CLI) | payer MEDICARE, OTHER ==
[2019-04-29 14:27] LABS: Hemoglobin 9.5 g/dL (14.0-18.0); Mean Corpuscular HGB CONC 32.1 g/dL (32.0-36.0); Mean Corpuscular Volume 77.9 fL (78.0-98.0); Platelet Count 316 thou/uL (130-400); RBC Distribution Width 15.1 % (11.5-14.5); Red Blood Cell (RBC) Count 3.81 mill/uL (4.70-6.10); White Blood Cell (WBC) Count 3.1 thou/uL (4.8-10.8)
[2019-04-29 14:46] LABS: Anion Gap 11 mmol/L (10-20); BUN (Urea Nitrogen) 13 mg/dL (8.4-25.7); Calc. Creatinine Clearance 0 mL/min (70-130); Calcium 9.4 mg/dL (7.8-10.44); Carbon Dioxide 29 mmol/L (23-31); Chloride 101 mmol/L (98-107); Estimated GFR-MDRD 75; Glucose 87 mg/dL (83-110); Potassium 4.3 mmol/L (3.5-5.1); Sodium 137 mmol/L (136-145)
== END 2019-04-29 00:13 | disposition home or self-care (01) ==
LOC: LABBT 00:12
PROVIDERS: ATTEND Neurological Surgery
DX: Z01.812 Encounter for preprocedural laboratory examination (principal); M48.061 Spinal stenosis, lumbar region without neurogenic claudication; M43.16 Spondylolisthesis, lumbar region
CPT/HCPCS: 80048; 85027

== ENCOUNTER 2019-04-29 11:15 | Inpatient (IN) | payer MEDICARE, OTHER ==
[2019-04-29 12:07] VITALS: BMI 27.3
--- NOTE | 2019-04-30 21:03 | HP ---
HISTORY OF PRESENT ILLNESS: This is a 73-year-old male who reports to our office for evaluation of right leg pain. He states that he has had pain on and off for years. However, it got worse recently since he has had a knee replacement in May. He states that he gets significant pain down the L5 distribution on the right, worse when he is up and walking, better when he is sitting. He states that when he is up and walking, he will look quickly for something to lean on or bend forward. He uses the shopping cart in the grocery store. The patient has history of injury, possible effusion in [employer] in 1990. Denies physical therapy or injections. He takes Brenham for pain relief. REVIEW OF SYSTEMS: A 10-point review of systems has been negative other than stated in the above HPI. PAST MEDICAL HISTORY: Hyperlipidemia, hypertension, hypothyroidism, arthritis, BPH, gout, acid reflux, coronary artery disease, peripheral vascular disease. PAST SURGICAL HISTORY: Lumbar fusion, rotator cuff, total hip replacement, tonsillectomy, sebaceous cyst x3, hand surgery, stent placement in artery, total knee replacement. FAMILY HISTORY: Father is , diagnosed with hypertension. Mother is , diagnosed with diabetes and stroke. Children alive, hypertension, heart disease. SOCIAL HISTORY: The patient is a smoker, has smoked approximately a pack a day for 53 years. Drinks alcohol almost daily. Denies other drugs and drinks caffeine, is , retired. MEDICATIONS: 1. Allopurinol. 2. Aspirin. 3. Atenolol. 4. Atorvastatin. 5. Acetaminophen. 6. Levothyroxine. 7. Pantoprazole. ALLERGIES: NO KNOWN DRUG ALLERGIES. PHYSICAL EXAMINATION: CONSTITUTIONAL: Well appearing, well nourished. NEUROLOGIC: Awake, alert, oriented x3. Speech is spontaneous and fluent. Normal fund of knowledge. Cranial nerves: Grossly intact. Lower extremities: 5/5 bilateral strength in hip flexion, knee flexion, knee extension, dorsiflexion, plantar flexion, EHL, L5 right radiculopathy. Positive single leg raise on the right. Hip rotation normal bilaterally. Nontender to palpate the lumbar spine. Deep tendon reflexes: Diminished reflexes bilaterally. Negative Babinski. He has no clonus. Sensory: Light touch intact. Gait and station: Sit to stand slow. Normal gait. IMAGING: MRI of lumbar spine shows stenosis of L2 through L5, listhesis, L4-L5, and synovial cyst on the right facet, listhesis, L3-L4. ASSESSMENT AND PLAN: Dr. Zimmerman has offered surgery. The patient states that he understands the risks and is willing to proceed with surgery. Job ID: [id number]
[2019-05-02] MEDS ORDERED: Sodium Chloride 0.9% 40 ML ONE (06:17)
[2019-05-02] MEDS ORDERED: Bupivacaine HCl 0.5%/Epinephrine 1:200,000/PF 30 ml Vial ONE (06:17)
[2019-05-02] MEDS ORDERED: Thrombin 5000 UNITS/5 ML VIAL ONE (06:17)
[2019-05-02] MEDS ORDERED: Albumin 5% 500 ML ONE (06:54)
[2019-05-02] MEDS ORDERED: Ketamine 50 MG/ML (10ML VIAL) ONE (06:55)
[2019-05-02 07:09] LABS: INR-International Normal Ratio 1.2; PTT 39.3 SEC (22.9-36.1); Prothrombin Time 14.9 SEC (12.0-14.7)
[2019-05-02] MEDS ORDERED: Fentanyl 100 MCG/2 ML VIAL ONE (07:38)
[2019-05-02] MEDS ORDERED: Tamsulosin HCl 0.4 MG CAP PO PRN (12:01)
[2019-05-02] MEDS ORDERED: diphenhydrAMINE 50 MG/ML VIAL IVP PRN (12:01)
[2019-05-02] MEDS ORDERED: Ondansetron PF 4 MG/2 ML Vial IVP PRN (12:01)
[2019-05-02] MEDS ORDERED: Promethazine 25 MG TAB PO PRN (12:01)
[2019-05-02] MEDS ORDERED: Morphine 4 MG/ML VIAL SLOW IVP PRN ×2 (12:01)
[2019-05-02] MEDS ORDERED: Acetaminophen/Codeine 30-300mg Tablet PO PRN ×2 (12:01)
[2019-05-02] MEDS ORDERED: Mag-Al 1200 mg/1200 mg/30 ML UDCUP PO PRN (12:01)
[2019-05-02] MEDS ORDERED: Milk Of Magnesia 30 ML UDCUP PO PRN (12:01)
[2019-05-02] MEDS ORDERED: Bisacodyl 10 MG SUPP PR PRN (12:01)
[2019-05-02] MEDS ORDERED: diphenhydrAMINE 25 MG CAP PO PRN (12:01)
[2019-05-02] MEDS ORDERED: Acetaminophen 325 MG TAB PO PRN (12:01)
[2019-05-02] MEDS ORDERED: tiZANidine HCl 4 MG TAB PO PRN (12:01)
[2019-05-02] MEDS ORDERED: Acetaminophen 500 MG TAB PO PRN (12:06)
[2019-05-02] MEDS ORDERED: HYDROcodone/Acetaminophen 10/325 mg Tablet PO PRN (12:06)
[2019-05-02] MEDS ORDERED: CEFAZOLIN 2 GM in Premix Bag 1 BAG IVPB SCH ×2 (14:00→15:15)
[2019-05-02] MEDS ORDERED: Sodium Chloride 0.9% 10 ML ONE (15:09)
[2019-05-02] MEDS ORDERED: CEFAZOLIN 1 GM VIAL ONE (15:32)
[2019-05-02] MEDS ORDERED: Vecuronium 10 MG VIAL ONE (16:44)
[2019-05-02 16:53] LABS: #Lymphocytes 0.8 thou/uL (1.20-3.40); #Monocytes 0.1 thou/uL (0.11-0.59); #Neutrophils 4.2 thou/uL (1.40-6.50); %Basophils 0.2 % (0.0-1.0); %Lymphocytes 16.1 % (21.0-51.0); %Monocytes 1.5 % (0.0-10.0); %Neutrophils 82.1 % (42.0-75.0); Mean Corpuscular HGB CONC 33.1 g/dL (32.0-36.0); Mean Corpuscular Hemoglobin 27.1 pg (27.0-31.0); Mean Corpuscular Volume 82.1 fL (78.0-98.0); Mean Platelet Volume 10.3 fL (7.4-10.4); Platelet Count 284 thou/uL (130-400); RBC Distribution Width 16.4 % (11.5-14.5); Red Blood Cell (RBC) Count 3.68 mill/uL (4.70-6.10); White Blood Cell (WBC) Count 5.1 thou/uL (4.8-10.8)
[2019-05-02 16:59] LABS: INR-International Normal Ratio 1.2; PTT 34.1 SEC (22.9-36.1); Prothrombin Time 15.5 SEC (12.0-14.7)
--- NOTE | 2019-05-02 17:09 | OP ---
DATE OF PROCEDURE: 05/02/2019 ASSISTANTS: 1. Angelica Carrillo PA-C. 2. Medical student, Kizzy Orantes, MS-4. PREOPERATIVE DIAGNOSES: Multilevel lumbar stenosis with unstable spondylolisthesis at L3-L4 and L4-L5, prior laminectomy L4-L5, prior attempt of posterolateral arthrodesis L4-L5. POSTOPERATIVE DIAGNOSES: Multilevel lumbar stenosis with unstable spondylolisthesis at L3-L4 and L4-L5, prior laminectomy L4-L5, prior attempt of posterolateral arthrodesis L4-L5. PROCEDURES PERFORMED: 1. Reopening lumbar incision, decompressive laminectomy, medial facetectomy, foraminotomy, L2-L3, L3-L4, L4-L5. 2. Transforaminal lumbar interbody arthrodesis, L4-L5 and L3-L4. 3. Placement of intervertebral biomechanical device, L4-L5 and L3-L4. 4. Pedicle screw and nelson instrumentation, L3, L4, and L5. 5. Posterolateral arthrodesis, L3-L4 and L4-L5. 6. Inspection of fusion mass, L4-L5. 7. Local morselized autograft, morselized allograft, and operating microscope. PREOPERATIVE MEDICATIONS: Ancef 2 g IV. DRAIN NUMBER: 2. DRAIN TYPE: 10-Danish Perry. DESCRIPTION OF PROCEDURE: The patient was brought to the operating room. General endotracheal anesthesia was induced. The patient was positioned prone on Mike frame with the chest and hips supported by the appropriate attachments from the Mike frame. A lateral fluoro radiograph confirmed that the previous incision would give us access from L2 to S1 segments of the lumbar spine. The lumbar skin was sterilely prepped and draped. We reopened the previous incision with a 10 blade knife and controlled bleeding with bipolar and monopolar cautery. We used monopolar cautery to dissect through the subcutaneous tissues to the thoracodorsal fascia. We incised the fascia in the midline and reflected the paraspinal muscles off the spinous process and lamina of L2, L3, L4, and L5. A self-retaining retractor was placed and a lateral fluoro radiograph confirmed the levels upon which we were operating. We were then able to carry our dissection over the facet joints at L2-L3 and L3-L4 as well as L4-L5 to identify the transverse processes of L3, L4, and L5 bilaterally. The L4 and L5 transverse processes were within a previous fusion mass as he had an attempted arthrodesis in the past. We inspected that arthrodesis bone and placed clamps at L4 and L5 and still found motion of the facet joint. We then carefully removed the spinous process of L2-L3 and the remnant of L4 and superior portion of the spinous process of L5. Using a Kerrison rongeur, we fashioned the laminectomy down the midline. At the L4-L5 interspace, there was a significant buildup of scar tissue from previous surgery. This necessitated the operating microscope. Under microscopic magnification and using microsurgical techniques, we carefully dissected the scar tissue off the inferior portion of the lamina. The medial facet joints and the lateral recesses from the L4 pedicle to the L5 pedicle. This was quite meticulous and difficult. There was a synovial cyst. It was extremely large and adherent on the right side at L4-L5. There was another synovial cyst on the left at L4-L5 that was underrepresented on imaging. These were carefully disconnected from the facet joints and carefully peeled off the dura. After hours of dissection, we finally decompressed from L2 to L5 through each lateral recess under all the facet joints and out the foramina without any neural impingement whatsoever anymore. We then turned our attention to arthrodesis. After inspecting the fusion mass, we found it mobile. We palpated the medial portion of the pedicles. We used bony anatomic landmarks and we used a lateral fluoro radiograph. We chose entry points for pedicle screws at L3, L4, and L5. We drilled out the entry points and used a bone awl to advance our trajectories into the vertebral bodies. We tapped each trajectory and found them completely encased in bone. We placed 6.5 mm diameter screws into the pedicles at L3, L4, and L5 bilaterally. We drilled out bone over the foramen at L3-L4 on the right and L4-L5 on the right. We accessed the intervertebral space through the foramen with 11 blade knife. We removed disk contents using curettes and rongeurs. We prepared the endplates for grafting. We used a rectangular shaped bone rasp. We measured the height of the interspace to 10 mm at L4-L5 and 9 mm at L3-L4. Two separate PEEK intervertebral grafts were brought into the field. Demineralized bone matrix and morselized autograft was placed into the PEEK grafts and they were advanced into their respective interspaces under radiographic guidance to the appropriate depth. This autograft was obtained from our laminectomy bone, which was cleaned of soft tissue attachments on the back table, morcellized and added into demineralized bone matrix as our fusion substrate. We irrigated copiously with bacitracin irrigation. A 360-degree image set was generated with our isocentric C-arm. This confirmed adequate positioning of our pedicle screw instrumentation as well as our interbody graft. We then brought rods into the field. We carefully placed rods into the screw heads and tightened caps over the rods. Using a torque/counter-torque mechanism, we ensured adequate tightness. We used gentle compressive force across each interspace to keep the interbody graft in place as we tightened down onto the nelson. We irrigated once again bacitracin irrigation. We decorticated the transverse processes of L3, L4, and L5 bilaterally. We drilled out much of the fusion mass, which was incomplete. Over the decorticated bone and drilled bone, we left demineralized bone matrix and morselized autograft as our posterolateral fusion substrate. We then tunneled 2 drains inferiorly through a separate stab incision. We treated the wound with vancomycin powder. We infused local anesthetic in the paraspinal muscles. We closed the wound in anatomical layers and we applied a sterile dressing. This was a clean case, no contamination. Due to the length of the procedure and the difficulty with scar tissue dissection and constant slow ooze of blood products, this case was much more difficult than average. Job ID: [id number]
[2019-05-02 17:21] LABS: ALT (SGPT) 11 U/L (8-55); AST (SGOT) 17 U/L (5-34); Albumin 3.2 g/dL (3.4-4.8); Alkaline Phosphatase 78 U/L (40-150); Anion Gap 13 mmol/L (10-20); BUN (Urea Nitrogen) 12 mg/dL (8.4-25.7); Calc. Creatinine Clearance 68 mL/min (70-130); Carbon Dioxide 24 mmol/L (23-31); Chloride 106 mmol/L (98-107); Estimated GFR-MDRD 60; Globulin 2.3 g/dL (2.4-3.5); Glucose 172 mg/dL (83-110); Potassium 4.9 mmol/L (3.5-5.1); Protein, Total 5.5 g/dL (5.8-8.1); Sodium 138 mmol/L (136-145)
[2019-05-02] MEDS: Sodium Chloride 0.9% 1,000 ML IV SCH (17:31)
[2019-05-02 17:51] LABS: Actual Bicarbonate (HCO3a) 24.5 mEq/L (22-28); Base Excess (BEa) -3.3 mEq/L (-2.0 to +3.0); CO2 Tension 58.4 mmHg (35.0-45.0); Carboxyhemoglobin (COHb) 1.6 gm% (0.0-3.0); Hemoglobin (Hb) 10.6 g/dL (14.0-18.0); O2 Tension (PaO2) 81.4 mmHg (> 70.0); Potassium - ABG Lab 4.63 mmol/L (3.70-5.30)
[2019-05-02 17:52] LABS: pH, Arterial 7.24 (7.35-7.45)
--- NOTE | 2019-05-02 17:59 | RAD ---
RADIOGRAPH CHEST 1 VIEW: DATE: 05/02/2019 HISTORY: Central line placement in 73-year-old male FINDINGS: There are no airspace densities, pulmonary edema, pneumothorax, or cardiomegaly. The lateral costophr enic angles are sharp. There is no central vascular catheter visible. Instead, there is an endotracheal tube with distal tip overlying mid thoracic trachea. IMPRESSION: 1. No acute cardiopulmonary findings. 2. Status post intubation with endotracheal tube.
[2019-05-02] MEDS ORDERED: DISCONTINUE PREVIOUS NARCOTIC PAIN MEDICATIONS AND BENZODIAZEPINES FS SCH (18:21)
[2019-05-02] MEDS ORDERED: Fentanyl BOLUS 250 ML IVPB PRN (18:21)
[2019-05-02] MEDS ORDERED: fentaNYL Citrate/PF 2,000 MCG in Sodium Chloride 0.9% 60 ML IV SCH (18:21)
[2019-05-02] MEDS ORDERED: Propofol BOLUS 1,000 MG/100 ML VIAL IV PRN (18:21)
[2019-05-02] MEDS ORDERED: Propofol 1,000 MG/100 ML VIAL IV PRN (18:21)
[2019-05-02] MEDS ORDERED: Lorazepam 2 MG/ML VIAL SLOW IVP PRN (18:21)
[2019-05-02] MEDS ORDERED: Morphine 2 MG/ML SYRINGE SLOW IVP PRN (18:21)
[2019-05-02] MEDS: Cilostazol 100 MG TAB PO SCH (20:39)
[2019-05-02] MEDS: Atorvastatin Calcium 10 MG TAB PO SCH (20:39)
[2019-05-02] MEDS: Allopurinol 300 MG TAB PO SCH (20:39)
[2019-05-02] MEDS: CEFAZOLIN 2 GM in Premix Bag 1 BAG IVPB SCH (21:09)
[2019-05-03] MEDS: CEFAZOLIN 2 GM in Premix Bag 1 BAG IVPB SCH ×3 (05:27→21:00)
[2019-05-03] MEDS: Sodium Chloride 0.9% 1,000 ML IV SCH ×3 (05:28→16:53)
[2019-05-03 05:30] LABS: Hemoglobin 8.5 g/dL (14.0-18.0)
[2019-05-03] MEDS: Levothyroxine Sodium 125 MCG TAB PO SCH (05:32)
[2019-05-03 07:28] LABS: Actual Bicarbonate (HCO3a) 23.3 mEq/L (22-28); Base Excess (BEa) -2.5 mEq/L (-2.0 to +3.0); CO2 Tension 44.7 mmHg (35.0-45.0); Calcium, Ionized 1.07 mmol/L (1.12-1.30); Carboxyhemoglobin (COHb) 1.5 gm% (0.0-3.0); Hemoglobin (Hb) 8.7 g/dL (14.0-18.0); O2 Tension (PaO2) 135.5 mmHg (> 70.0); Potassium - ABG Lab 4.81 mmol/L (3.70-5.30); pH, Arterial 7.33 (7.35-7.45)
[2019-05-03 07:33] LABS: ALV-art Gradient 93.825 (0-20); Puncture Site ALINE
[2019-05-03] MEDS ORDERED: Prevnar 13-Val Conj/PF 0.5 ML SYRINGE IM ONE (09:00)
[2019-05-03] MEDS ORDERED: Morphine 2 MG/ML SYRINGE SLOW IVP PRN (11:30)
[2019-05-03] MEDS: Atenolol 25 MG TAB PO SCH (11:46)
[2019-05-03] MEDS: Cilostazol 100 MG TAB PO SCH ×2 (11:47→20:58)
[2019-05-03] MEDS: HYDROcodone/Acetaminophen 7.5/325 mg Tablet PO PRN ×2 (11:48→20:58)
[2019-05-03] MEDS: Nicotine 14 MG PATCH TOP SCH (11:51)
[2019-05-03 16:41] LABS: Hemoglobin 7.9 g/dL (14.0-18.0); Mean Corpuscular HGB CONC 32.9 g/dL (32.0-36.0); Mean Corpuscular Hemoglobin 27.3 pg (27.0-31.0); Mean Corpuscular Volume 83.2 fL (78.0-98.0); RBC Distribution Width 16.8 % (11.5-14.5); Red Blood Cell (RBC) Count 2.89 mill/uL (4.70-6.10); White Blood Cell (WBC) Count 9.5 thou/uL (4.8-10.8)
--- NOTE | 2019-05-03 17:10 | CON ---
DATE OF CONSULTATION: 05/03/2019 CHIEF COMPLAINT: Status post lumbar laminectomy. HISTORY OF PRESENT ILLNESS: The patient is a 73-year-old male, who underwent lumbar laminectomy on 05/02/2019 because of the protracted for time and difficulty of the procedure. He was placed in ICU, intubated overnight for further observation and medical management. He has done well since being placed in CCU without complications. He is simply now on a CPAP level, fully alert and claiming he is ready to be extubated, but now pain management in place and seems to be quite adequate. He is alert and responsive to examination and questions. PAST MEDICAL HISTORY: Hyperlipidemia, hypertension, hypothyroidism, diffuse osteoarthritis, BPH, gout, GERD, coronary artery disease, and peripheral vascular disease. PAST SURGICAL HISTORY: Status post lumbar laminectomy, lumbar fusion, rotator cuff repair, total hip replacement, tonsillectomy, sebaceous cyst removal x3 and surgery, stent placement, and total knee replacement. FAMILY HISTORY: Significant for hypertension, diabetes, and CVA. SOCIAL HISTORY: Quite active bowling male, who still smokes a pack a day and has for 53 years. He drinks socially. Denies illicit drug use. He is and retired. MEDICATIONS: On admission include: 1. Allopurinol 300 mg daily. 2. Aspirin 81 mg daily. 3. Atenolol 25 mg a day. 4. Pletal 100 mg b.i.d. 5. Atacand 8 mg daily. 6. Lipitor 10 mg at bedtime. 7. Hydrocodone 10 b.i.d. p.r.n. arthritis pain. 8. Levothyroxine 150 mcg daily. 9. Celecoxib 100 mg daily. 10. Protonix 40 mg daily. PHYSICAL EXAMINATION: VITAL SIGNS: Blood pressure 115/54, pulse 79. Weight 184 pounds 5 ounces. GENERAL: Well-developed, well-nourished, elderly male, alert and intubated, but responsive. HEENT: Normocephalic and atraumatic. Pupils are equal, round, and reactive to light. Extraocular muscles are intact. TMs, nares clear. Pharynx with ET tube in place. NECK: Supple. No adenopathy. CHEST: Clear to auscultation. HEART: Regular rate and rhythm. ABDOMEN: Soft and nontender without organomegaly. : Deferred. EXTREMITIES: Without clubbing or cyanosis. There is 1+ edema in both upper extremities and lower extremities due to water overload. SKIN: Without acute rashes or lesions. NEUROLOGIC: Cranial nerves appear intact with facial movements. Sensory exam is generally intact to exam. Unable to test gait and cerebral function at this time. LABORATORY DATA: Lab work thus far shows sodium at 138, potassium 4.9, chloride 106, CO2 of 24, BUN 12, creatinine 1.18 with a GFR 60, glucose 172. Liver functions unremarkable. ABG; pH 7.33, pCO2 of 135, pO2 of 44. WBCs 5.1, hemoglobin 8.5, hematocrit 25.7 with platelets at 284. ASSESSMENT: 1. Postoperative day #1 from lumbar laminectomy. 2. Chronic obstructive pulmonary disease. 3. Hypertension. 4. Gastroesophageal reflux disease. 5. History of coronary artery disease. 6. Nicotine dependence. PLAN: 1. Plan will be to replace nicotine patch 14 mg a day. 2. After extubation, swallow evaluation will be determined and should that be normal, as anticipated, we will resume his usual p.o. medications and serially follow him for his postop needs. He is currently in stable condition. Job ID: [id number]
[2019-05-03 18:07] LABS: Band 6 % (5-11); Elliptocytes SLIGHT = 2-5 cells (100X) (0-1/hpf); Lymphocytes 11 % (21-51); MDiff Complete? YES; Mean Platelet Volume 10.4 fL (7.4-10.4); Monocytes 8 % (0-10); Neutrophil 75 % (42-75); Ovalocytes SLIGHT = 2-5 cells (100X) (0-1/hpf); Platelet Count 233 thou/uL (130-400); Platelet Morphology Comment Appears Adequate; Polychromasia SLIGHT = 2-3 cells (100X) (0-2/hpf)
[2019-05-03] MEDS: Allopurinol 300 MG TAB PO SCH (20:58)
[2019-05-03] MEDS: Atorvastatin Calcium 10 MG TAB PO SCH (20:58)
--- NOTE | 2019-05-03 21:04 | CON ---
DATE OF CONSULTATION: 05/03/2019 HISTORY OF PRESENT ILLNESS: Mr. Wisdom is a 73-year-old gentleman who underwent a long surgical procedure in the prone position. He had facial edema. There were concerns about upper airway edema, so he was left intubated overnight. PAST MEDICAL HISTORY: Remarkable for: 1. Knee replacement. 2. History of lipid disorder. 3. Hypertension. 4. Hypothyroidism, on replacement. 5. History of BPH. 6. History of reflux disease. 7. History of peripheral vascular disease. 8. History of coronary artery disease. 9. History of lumbar spine fusion in the past. 10. History of rotator cuff surgery. 11. History of a total hip replacement. 12. History of tonsillectomy. 13. History of total knee. FAMILY HISTORY: Positive for diabetes, hypertension, and vascular disease. SOCIAL HISTORY: He is a smoker, 50 plus pack years. He is daily drinker. He does not use drugs. MEDICATIONS: Prior to admission, he is on allopurinol, aspirin, atenolol, atorvastatin, Synthroid, and Protonix. ALLERGIES: THERE ARE NO DRUG ALLERGIES REPORTED. REVIEW OF SYSTEMS: Not obtainable because he is intubated. PHYSICAL EXAMINATION: GENERAL: On exam, he is intubated. He is in no distress. VITAL SIGNS: He is afebrile, respiratory rate 18, oximetry is in the high 90s. HEENT: Pupils are equal. Sclerae anicteric. NECK: Supple. Trachea is in midline. LUNGS: Clear anteriorly. HEART: Regular rhythm. S1 and S2 are normal. ABDOMEN: Soft and nontender. EXTREMITIES: Without clubbing, cyanosis, or edema. His minute volume was 8 L a minute. LABORATORY DATA: White count 9.5, hemoglobin 7.9, platelets 233 this morning. Hemoglobin was 10. Intake and output positive 156 yesterday, positive 2706 today, which likely accounts for his drop in hemoglobin. Did drop his blood pressure when he was set up in a chair today, so he received volume infusion. PH 7.33, CO2 44, PO2 135 this morning. Electrolytes are normal. IMPRESSION: Status post lumbar spine surgery requiring prolong period anesthetized. I felt he is a candidate for extubation. This has been done successfully. He will remain in critical care unit. I suspect his blood pressure issues are related to fluid shifts. He does not have anything to suggest that we are dealing with spinal shock on exam. We will continue to follow with the other physicians caring for him. CRITICAL CARE TIME: 30 minutes. Job ID: [id number] MTDD
[2019-05-04] MEDS: HYDROcodone/Acetaminophen 7.5/325 mg Tablet PO PRN ×2 (03:58→13:03)
[2019-05-04] MEDS: Sodium Chloride 0.9% 1,000 ML IV SCH ×2 (04:10→18:12)
[2019-05-04 05:13] LABS: Anion Gap 11 mmol/L (10-20); BUN (Urea Nitrogen) 15 mg/dL (8.4-25.7); Calc. Creatinine Clearance 89 mL/min (70-130); Calcium 7.9 mg/dL (7.8-10.44); Carbon Dioxide 22 mmol/L (23-31); Chloride 106 mmol/L (98-107); Estimated GFR-MDRD 88; Glucose 103 mg/dL (83-110); Potassium 3.8 mmol/L (3.5-5.1); Sodium 135 mmol/L (136-145)
[2019-05-04] MEDS: Levothyroxine Sodium 125 MCG TAB PO SCH (05:35)
[2019-05-04] MEDS: CEFAZOLIN 2 GM in Premix Bag 1 BAG IVPB SCH ×3 (05:35→21:21)
[2019-05-04 05:42] LABS: Band 6 % (5-11); Elliptocytes SLIGHT = 2-5 cells (100X) (0-1/hpf); Hemoglobin 7.3 g/dL (14.0-18.0); Large Platelets SLIGHT; Lymphocytes 23 % (21-51); MDiff Complete? YES; Mean Corpuscular HGB CONC 32.7 g/dL (32.0-36.0); Mean Corpuscular Hemoglobin 27.3 pg (27.0-31.0); Mean Corpuscular Volume 83.5 fL (78.0-98.0); Mean Platelet Volume 10.8 fL (7.4-10.4); Monocytes 11 % (0-10); Neutrophil 60 % (42-75); Ovalocytes SLIGHT = 2-5 cells (100X) (0-1/hpf); Platelet Count 148 thou/uL (130-400); Platelet Morphology Comment Appears Adequate; Poikilocytosis SLIGHT = 6-15 cells (100X) (0-5/hpf); Polychromasia SLIGHT = 2-3 cells (100X) (0-2/hpf); RBC Distribution Width 16.3 % (11.5-14.5); Red Blood Cell (RBC) Count 2.65 mill/uL (4.70-6.10); White Blood Cell (WBC) Count 5.8 thou/uL (4.8-10.8)
[2019-05-04] MEDS: Cilostazol 100 MG TAB PO SCH ×2 (08:41→21:20)
[2019-05-04] MEDS: Atenolol 25 MG TAB PO SCH (08:41)
--- NOTE | 2019-05-04 09:32 | PRG ---
DATE OF SERVICE: 05/04/2019 Mr. Wisdom is now 2 days status post lumbar decompression and fusion. He was extubated yesterday. He is resting comfortably in a chair in the ICU this morning. His hemoglobin dropped and he did develop some symptomatic hypotension. He has been receiving 2 units of blood. He is awake, oriented, and looks good now. His blood pressure is of normal parameters as is his heart rate. He reports expected incisional back pain. He still has a copious amount of output in his drains and so we will leave those in currently. We will remove the Piña. He does report some right-sided leg pain, which I believe is more orthopedic in nature than radicular. We will start to mobilize him and potentially move him from the ICU later this afternoon. Job ID: [id number]
[2019-05-04] MEDS: Nicotine 14 MG PATCH TOP SCH (13:13)
[2019-05-04 14:08] LABS: #Lymphocytes 0.9 thou/uL (1.20-3.40); #Monocytes 0.9 thou/uL (0.11-0.59); #Neutrophils 4.3 thou/uL (1.40-6.50); %Basophils 0.1 % (0.0-1.0); %Eosinophils 0.2 % (0.0-10.0); %Lymphocytes 14.6 % (21.0-51.0); %Monocytes 14.3 % (0.0-10.0); %Neutrophils 70.8 % (42.0-75.0); Hemoglobin 9.7 g/dL (14.0-18.0); Mean Corpuscular HGB CONC 32.8 g/dL (32.0-36.0); Mean Corpuscular Hemoglobin 27.3 pg (27.0-31.0); Mean Corpuscular Volume 83.3 fL (78.0-98.0); Mean Platelet Volume 10.5 fL (7.4-10.4); Platelet Count 168 thou/uL (130-400); RBC Distribution Width 16.9 % (11.5-14.5); Red Blood Cell (RBC) Count 3.55 mill/uL (4.70-6.10)
--- NOTE | 2019-05-04 21:12 | PRG ---
DATE OF SERVICE: 05/04/2019 SUBJECTIVE: Nirav Wisdom has no complaints. He is in a chair at bedside. OBJECTIVE: VITAL SIGNS: He is afebrile. His oximetry is 96% on room air, heart rate is 82, respiratory rate 18, blood pressure 133/51. Intake and outputs positive 2637. He required volume infusion, also was transfused this morning for hemoglobin 7.3. Post transfusion hemoglobin is 9.7. LUNGS: Clear. HEART: Regular rhythm. ABDOMEN: Soft and nontender. EXTREMITIES: Warm. He has no neuro deficits. Electrolytes are normal. Sodium 135, potassium 3.8, chloride 106, bicarb 22, anion gap 7, BUN is 15, creatinine is 0.85, albumin is 3.2. IMPRESSION: 1. Status post very long lumbar spine procedure in the prone position leading to overnight mechanical ventilation. He is clinically stable. 2. Blood loss anemia. We will follow while he is in the Critical Care Unit and sign off on transfer out of the Critical Care Unit. Job ID: [id number]
[2019-05-04] MEDS: Atorvastatin Calcium 10 MG TAB PO SCH (21:20)
[2019-05-04] MEDS: Allopurinol 300 MG TAB PO SCH (21:20)
[2019-05-05] MEDS: Sodium Chloride 0.9% 1,000 ML IV SCH ×3 (02:02→21:07)
[2019-05-05 05:47] LABS: #Lymphocytes 1.3 thou/uL (1.20-3.40); #Monocytes 0.4 thou/uL (0.11-0.59); #Neutrophils 3.5 thou/uL (1.40-6.50); %Eosinophils 0.2 % (0.0-10.0); %Monocytes 8.2 % (0.0-10.0); %Neutrophils 66.5 % (42.0-75.0); Hemoglobin 9.2 g/dL (14.0-18.0); Mean Corpuscular HGB CONC 33.6 g/dL (32.0-36.0); Mean Corpuscular Hemoglobin 27.9 pg (27.0-31.0); Mean Corpuscular Volume 83.1 fL (78.0-98.0); Mean Platelet Volume 10.6 fL (7.4-10.4); Platelet Count 140 thou/uL (130-400); RBC Distribution Width 16.9 % (11.5-14.5); Red Blood Cell (RBC) Count 3.28 mill/uL (4.70-6.10); White Blood Cell (WBC) Count 5.3 thou/uL (4.8-10.8)
[2019-05-05 05:56] LABS: Anion Gap 8 mmol/L (10-20); BUN (Urea Nitrogen) 8 mg/dL (8.4-25.7); Calc. Creatinine Clearance 100 mL/min (70-130); Calcium 8.7 mg/dL (7.8-10.44); Carbon Dioxide 27 mmol/L (23-31); Chloride 105 mmol/L (98-107); Estimated GFR-MDRD Greater than 90; Glucose 100 mg/dL (83-110); Potassium 4.3 mmol/L (3.5-5.1); Sodium 136 mmol/L (136-145)
[2019-05-05] MEDS: CEFAZOLIN 2 GM in Premix Bag 1 BAG IVPB SCH ×3 (06:18→21:11)
[2019-05-05] MEDS: Levothyroxine Sodium 125 MCG TAB PO SCH (06:18)
--- NOTE | 2019-05-05 08:10 | PRG ---
DATE OF SERVICE: 05/03/2019 Mr. Wisdom is postop day #1 following lumbar laminectomy with TLIF. He is in the unit, though he is awake and interactive and nodding his head and shaking his head appropriately. He moves all 4 extremities on command with ease. He denies any significant back pain. His drainage output total is 170 overnight, we will leave these for now and potentially discontinue later today. After extubation, he is safe for transfer to the floor. We will repeat a CBC this afternoon given his hemoglobin was 8.5 and hematocrit was 25.7 this morning, which was actually down from his preoperative labs. It appears overall though that he is doing well. We will ambulate him, transition him, and assess mobility throughout the day after extubation. Job ID: [id number]
[2019-05-05] MEDS: Atenolol 25 MG TAB PO SCH (09:46)
[2019-05-05] MEDS: Cilostazol 100 MG TAB PO SCH ×2 (09:47→21:06)
[2019-05-05] MEDS: HYDROcodone/Acetaminophen 7.5/325 mg Tablet PO PRN ×3 (09:49→22:03)
[2019-05-05] MEDS: Nicotine 14 MG PATCH TOP SCH (16:03)
--- NOTE | 2019-05-05 16:31 | PRG ---
DATE OF SERVICE: 05/05/2019 SERVICE: Pulmonary Medicine. INTERVAL HISTORY: The patient is doing fine from respiratory standpoint. He is on room air. Denies any current cough, sputum production, fevers, or chills. Otherwise, there has been no interval change to his condition. PHYSICAL EXAMINATION: VITAL SIGNS: Afebrile, pulse 72, blood pressure 176/83, respirations 16, and saturation 100% on room air. GENERAL: The patient is awake and alert, in no apparent distress. LUNGS: Decent air entry with minimal rhonchi. There is slight prolonged expiratory phase. Minimal wheezing is present. HEART: Normal rate and regular. ABDOMEN: Soft, nontender, and nondistended. Bowel sounds are positive. MUSCULOSKELETAL: No cyanosis or clubbing. No pitting in the bilateral lower extremities. NEUROLOGIC: Grossly nonfocal. LABORATORY DATA: WBC 5.3, hemoglobin 9.2, and platelets 140,000. INR 1.2. The pH 7.33, pCO2 of 45, and pO2 of 135. Basic metabolic profile is essentially unremarkable at this point. ASSESSMENT: 1. Acute hypoxic respiratory failure, resolved. 2. Chronic obstructive pulmonary disease, mild without current exacerbation. 3. Obstructive sleep apnea, quite severe. 4. Acute blood loss anemia, stable. 5. Status post extensive lumbar surgery in excess of 10 hours. DISCUSSION AND PLAN: The patient is stable for transition out of the ICU to the medical unit. I will continue working with Physical Therapy through time. I will change his nebulized medications over to p.r.n. At this point, he has no further requirements for inpatient Pulmonary or Critical Care opinion, and I will sign off. Please call with additional questions or concerns through time. Job ID: [id number]
[2019-05-05 17:36] LABS: Anisocytosis SLIGHT = 6-15 cells (100X) (0-5/hpf); Band 1 % (5-11); Elliptocytes SLIGHT = 2-5 cells (100X) (0-1/hpf); Hypochromia SLIGHT = 6-15 cells (100X) (0-5/hpf); Large Platelets SLIGHT; Lymphocytes 18 % (21-51); MDiff Complete? YES; Mean Corpuscular HGB CONC 33.7 g/dL (32.0-36.0); Mean Corpuscular Hemoglobin 27.9 pg (27.0-31.0); Mean Corpuscular Volume 82.9 fL (78.0-98.0); Mean Platelet Volume 10.9 fL (7.4-10.4); Monocytes 9 % (0-10); Neutrophil 72 % (42-75); Platelet Count 170 thou/uL (130-400); Platelet Morphology Comment Appears Adequate; Red Blood Cell (RBC) Count 3.57 mill/uL (4.70-6.10); White Blood Cell (WBC) Count 4.6 thou/uL (4.8-10.8)
[2019-05-05] MEDS: Atorvastatin Calcium 10 MG TAB PO SCH (21:07)
[2019-05-05] MEDS: Allopurinol 300 MG TAB PO SCH (21:08)
[2019-05-06 05:52] LABS: Anion Gap 11 mmol/L (10-20); BUN (Urea Nitrogen) 8 mg/dL (8.4-25.7); Calc. Creatinine Clearance 101 mL/min (70-130); Calcium 9.1 mg/dL (7.8-10.44); Carbon Dioxide 28 mmol/L (23-31); Chloride 100 mmol/L (98-107); Estimated GFR-MDRD Greater than 90; Glucose 104 mg/dL (83-110); Potassium 4.2 mmol/L (3.5-5.1); Sodium 135 mmol/L (136-145)
[2019-05-06] MEDS: CEFAZOLIN 2 GM in Premix Bag 1 BAG IVPB SCH ×2 (05:58→14:23)
[2019-05-06] MEDS: Levothyroxine Sodium 125 MCG TAB PO SCH (05:58)
[2019-05-06 06:12] LABS: Band 1 % (5-11); Elliptocytes SLIGHT = 2-5 cells (100X) (0-1/hpf); Eosinophils 1 % (0-10); Hemoglobin 9.9 g/dL (14.0-18.0); Large Platelets SLIGHT; Lymphocytes 27 % (21-51); MDiff Complete? YES; Mean Corpuscular Hemoglobin 27.5 pg (27.0-31.0); Mean Corpuscular Volume 83.1 fL (78.0-98.0); Mean Platelet Volume 10.8 fL (7.4-10.4); Monocytes 13 % (0-10); Neutrophil 58 % (42-75); Platelet Count 159 thou/uL (130-400); Platelet Morphology Comment Appears Adequate; Red Blood Cell (RBC) Count 3.61 mill/uL (4.70-6.10); White Blood Cell (WBC) Count 3.9 thou/uL (4.8-10.8)
--- NOTE | 2019-05-06 07:22 | PRG ---
DATE OF SERVICE: 05/06/2019 Mr. Wisdom is four days out from decompressive laminectomy and fusion of lumbar spine. His drains have been removed today due to decreased output. He has been up and walking in the hallways with physical therapy. He still does not feel strong enough to be discharged home and is considering rehab placement. Overnight, his vitals have been stable. He has no new complaints, radiating leg pains are gone. One more dose of antibiotics and we anticipate the patient's discharge once he has a placement in rehab. Job ID: [id number] [facility]
[2019-05-06] MEDS: Atenolol 25 MG TAB PO SCH (09:16)
[2019-05-06] MEDS: HYDROcodone/Acetaminophen 7.5/325 mg Tablet PO PRN ×2 (09:17→15:58)
[2019-05-06] MEDS: Cilostazol 100 MG TAB PO SCH (09:17)
[2019-05-06 09:54] LABS: Actual Bicarbonate (HCO3a) 23.4 mEq/L (22-28); Analyzer IN Cardio OR; Base Excess (BEa) -2.6 mEq/L (-2.0 to +3.0); CO2 Tension 45.8 mmHg (35.0-45.0); Calcium, Ionized 1.05 mmol/L (1.12-1.30); Carboxyhemoglobin (COHb) 1.4 gm% (0.0-3.0); Hemoglobin (Hb) 10.4 g/dL (14.0-18.0); O2 Tension (PaO2) 132.8 mmHg (> 70.0); Potassium - ABG Lab 4.35 mmol/L (3.70-5.30); pH, Arterial 7.33 (7.35-7.45)
[2019-05-06 09:54] LABS: Actual Bicarbonate (HCO3a) 24.7 mEq/L (22-28); Analyzer IN Cardio OR; CO2 Tension 45.3 mmHg (35.0-45.0); Calcium, Ionized 1.12 mmol/L (1.12-1.30); Carboxyhemoglobin (COHb) 1.7 gm% (0.0-3.0); Hemoglobin (Hb) 9.6 g/dL (14.0-18.0); O2 Tension (PaO2) 227.8 mmHg (> 70.0); Potassium - ABG Lab 4.34 mmol/L (3.70-5.30); pH, Arterial 7.35 (7.35-7.45)
[2019-05-06 09:54] LABS: Actual Bicarbonate (HCO3a) 24.2 mEq/L (22-28); Analyzer IN Cardio OR; Base Excess (BEa) -1.7 mEq/L (-2.0 to +3.0); CO2 Tension 45.8 mmHg (35.0-45.0); Calcium, Ionized 1.09 mmol/L (1.12-1.30); Carboxyhemoglobin (COHb) 1.1 gm% (0.0-3.0); O2 Tension (PaO2) 194.3 mmHg (> 70.0); Potassium - ABG Lab 4.55 mmol/L (3.70-5.30); pH, Arterial 7.34 (7.35-7.45)
[2019-05-06 09:55] LABS: Actual Bicarbonate (HCO3a) 25.2 mEq/L (22-28); Analyzer IN Cardio OR; Base Excess (BEa) -3.4 mEq/L (-2.0 to +3.0); Calcium, Ionized 1.11 mmol/L (1.12-1.30); Carboxyhemoglobin (COHb) 1.9 gm% (0.0-3.0); Hemoglobin (Hb) 10.7 g/dL (14.0-18.0); O2 Tension (PaO2) 109.8 mmHg (> 70.0); Potassium - ABG Lab 4.81 mmol/L (3.70-5.30)
[2019-05-06 10:12] LABS: Puncture Site ALINE
[2019-05-06 10:14] LABS: Puncture Site ALINE
[2019-05-06 10:15] LABS: Puncture Site ALINE
[2019-05-06 10:16] LABS: pH, Arterial 7.21 (7.35-7.45)
[2019-05-06 10:17] LABS: CO2 Tension 64.6 mmHg (35.0-45.0); Puncture Site ALINE
[2019-05-06] MEDS: Sodium Chloride 0.9% 1,000 ML IV SCH (10:23)
--- NOTE | 2019-05-06 11:01 | PRG ---
DATE OF SERVICE: 05/06/2019 I saw Mr. Wisdom in his hospital room this morning. He is sitting up at the bedside, visiting with his and a good family friend. Both his drains are out and he is feeling well. His major complaint is the tingling and numbness on the anterior portion of his thighs since he was positioned prone on the operating table. Otherwise, radiating pain down his legs are completely gone. His back is sore from surgery, but he is ambulatory with assistance. This morning, his vital signs have been stable. I do not see a fever recorded. His blood pressures are a bit up. There is good neurological function in both lower extremities. The brace is in place. The plan today is for Mr. Wisdom to transfer to inpatient rehabilitation. We will see him in his followup appointments that have already been made. He will use his brace when he is up and around, but take it off in bed. He does not need a dressing on the wound after today. We went over activity restrictions and wound care. Job ID: [id number]
[2019-05-06] MEDS: Nicotine 14 MG PATCH TOP SCH (12:05)
[2019-05-06 12:19] VITALS: BP 107/62; TEMP 97.4
== END 2019-05-06 16:42 | DRG 453 ==
LOC: EDSTATUS 11:15 → SURG A 05-02 05:33 → CCU 05-02 17:13 → SURG B 05-05 10:05 → SJJU 05-05 15:13 → SURG B 05-05 15:14
PROVIDERS: ADMIT Neurological Surgery; ATTEND Neurological Surgery
PROC: 01NB0ZZ Release Lumbar Nerve, Open Approach (ICD-10-PCS; principal; 2019-05-02)
PROC: 0SG10AJ Fusion of 2 or more Lumbar Vertebral Joints with Interbody Fusion Device, Posterior Approach, Anterior Column, Open Approach (ICD-10-PCS; 2019-05-02)
PROC: 0SG0071 Fusion of Lumbar Vertebral Joint with Autologous Tissue Substitute, Posterior Approach, Posterior Column, Open Approach (ICD-10-PCS; 2019-05-02)
DX: M43.16 Spondylolisthesis, lumbar region (principal); J96.01 Acute respiratory failure with hypoxia; D62 Acute posthemorrhagic anemia; M48.061 Spinal stenosis, lumbar region without neurogenic claudication; E78.5 Hyperlipidemia, unspecified; I10 Essential (primary) hypertension; E03.9 Hypothyroidism, unspecified; M19.90 Unspecified osteoarthritis, unspecified site; N40.0 Benign prostatic hyperplasia without lower urinary tract symptoms; M10.9 Gout, unspecified; K21.9 Gastro-esophageal reflux disease without esophagitis; I25.10 Atherosclerotic heart disease of native coronary artery without angina pectoris; I73.9 Peripheral vascular disease, unspecified; F17.210 Nicotine dependence, cigarettes, uncomplicated; M71.38 Other bursal cyst, other site; J44.9 Chronic obstructive pulmonary disease, unspecified; G47.33 Obstructive sleep apnea (adult) (pediatric); Z79.82 Long term (current) use of aspirin; Z96.649 Presence of unspecified artificial hip joint; Z96.659 Presence of unspecified artificial knee joint; Z82.49 Family history of ischemic heart disease and other diseases of the circulatory system; Z83.3 Family history of diabetes mellitus; Z82.3 Family history of stroke
CPT/HCPCS: 36415; 36416; 36430; 71045; 76000; 80048; 80053; 82805; 85014; 85018; 85025; 85027; 85610; 85730; 86850; 86900; 86901; 86922; 90471; 90670; 94002; 94003; 94640; C1713; C1768; G0009; J0670; J0690; J2270; J2704; J3010; J3370; J3490; J7620; P9016; P9045

== ENCOUNTER 2019-07-10 09:15 | Outpatient (CLI) | payer MEDICARE, OTHER ==
--- NOTE | 2019-07-10 12:17 | RAD ---
LUMBAR SPINE TWO VIEWS: Comparison: 02-18-19 FINDINGS: Interval placement of bilateral transpedicular screws at L3, L4 and L5. No perihardware lucency. Disc prosthesis at L3-4 and L4-5. Stable atherosclerosis and aneurysmal dilatation of the inferior renal abdominal aorta, incompletely evaluated. Left hip prosthesis is noted, with incomplete evaluation. Laminectomy defect at L3, L4, and L5 is identified. 2.6 mm of anterolisthesis of L3 upon L4 (previously 5.4 mm); 7.1 mm anterolisthesis of L4 upon L5 (pr eviously 12.3 mm). There is 2.8 mm of retrolisthesis of L2 upon L3. With regards to the aneurysmal dilatation, further evaluation with CT of the abdominal aorta may be b eneficial. IMPRESSION: 1. Lumbar fusion hardware as above. 2. Redemonstration of spondylolisthesis. 3. Aneurysmal dilatation of the infrarenal abdominal aorta, incompletely evaluated. Code T POS: OFF
== END 2019-07-10 09:16 | disposition home or self-care (01) ==
LOC: TBSIIMAG 09:15
PROVIDERS: ATTEND Neurological Surgery
DX: M54.5 Low back pain (principal); Z98.1 Arthrodesis status; M43.16 Spondylolisthesis, lumbar region; I71.4 Abdominal aortic aneurysm, without rupture
CPT/HCPCS: 72100

== ENCOUNTER 2020-04-23 08:55 | Outpatient (CLI) | payer MEDICARE, OTHER ==
--- NOTE | 2020-04-23 10:43 | RAD ---
CHEST 2 VIEWS: HISTORY: Dyspnea. COMPARISON: 03/07/2019. FINDINGS: Old granulomatous disease. Heart size is normal. Minimal scattered linear and interstitial chronic lung changes. No confluent pneumonia, overt edema, or pleural effusion. IMPRESSION: Minimal stable chronic lung changes. Old granulomatous disease. Atherosclerosis of the aorta. No a cute intrathoracic disease. POS: [facility]
== END 2020-04-23 08:56 | disposition home or self-care (01) ==
LOC: BICRAD 08:55
PROVIDERS: ATTEND Internal Medicine Cardiovascular Disease
DX: R06.00 Dyspnea, unspecified (principal); R06.02 Shortness of breath; I70.0 Atherosclerosis of aorta; J98.4 Other disorders of lung
CPT/HCPCS: 71046

== ENCOUNTER 2020-07-16 16:44 | Inpatient (IN) | payer MEDICARE, OTHER ==
[~2020-07-16 16:44] MED LIST: Iopamidol-370 76% 500 ML 1 ML ONE
[2020-07-16] MEDS ORDERED: Cefepime 2 GM VIAL ONE (17:12)
[2020-07-16 17:34] LABS: Hemoglobin 8.9 g/dL (14.0-18.0); Mean Corpuscular HGB CONC 32.8 g/dL (32.0-36.0); Mean Corpuscular Volume 85.4 fL (78.0-98.0); RBC Distribution Width 18.8 % (11.5-14.5); Red Blood Cell (RBC) Count 3.18 mill/uL (4.70-6.10); White Blood Cell (WBC) Count 2.3 thou/uL (4.8-10.8)
--- NOTE | 2020-07-16 17:35 | RAD ---
XR Chest 1 View Portable HISTORY: COVID 19 positive. Pneumonia COMPARISON: 07/08/2020 FINDINGS: The heart size is stable. There has been mild interval worsening of the multifocal infiltra saira since the last exam. No pneumothoraces or pleural effusions are seen. IMPRESSION: Mild worsening of pneumonia.
[2020-07-16 17:43] LABS: INR-International Normal Ratio 1.4; Prothrombin Time 17.1 sec (12.0-14.7)
[2020-07-16 17:44] LABS: PTT 33.8 sec (22.9-36.1)
[2020-07-16 17:46] LABS: ALT (SGPT) 237 U/L (8-55); AST (SGOT) 234 U/L (5-34); Albumin 3.1 g/dL (3.4-4.8); Alkaline Phosphatase 105 U/L (40-110); Anion Gap 15 mmol/L (10-20); BUN (Urea Nitrogen) 20 mg/dL (8.4-25.7); Bilirubin, Total 2.3 mg/dL (0.2-1.2); Calc. Creatinine Clearance 0 mL/min (70-130); Calcium 8.2 mg/dL (7.8-10.44); Carbon Dioxide 31 mmol/L (23-31); Chloride 98 mmol/L (98-107); Estimated GFR-MDRD 39; Globulin 2.6 g/dL (2.4-3.5); Glucose 131 mg/dL (83-110); Potassium 4.5 mmol/L (3.5-5.1); Protein, Total 5.7 g/dL (5.8-8.1); Sodium 139 mmol/L (136-145)
[2020-07-16 17:47] LABS: Anisocytosis SLIGHT = 6-15 cells (100X) (0-5/hpf); Band 3 % (5-11); Elliptocytes SLIGHT = 2-5 cells (100X) (0-1/hpf); Large Platelets SLIGHT; Lymphocytes 10 % (21-51); MDiff Complete? YES; Mean Platelet Volume 11.8 fL (7.4-10.4); Monocytes 14 % (0-10); Neutrophil 73 % (42-75); Ovalocytes SLIGHT = 2-5 cells (100X) (0-1/hpf); Platelet Count 53 thou/uL (130-400); Platelet Morphology Comment Appears Decreased; Poikilocytosis SLIGHT = 6-15 cells (100X) (0-5/hpf); Polychromasia SLIGHT = 2-3 cells (100X) (0-2/hpf); Schistocytes SLIGHT = 2-5 cells (100X) (0-1/hpf)
[2020-07-16 17:52] LABS: Lactic Acid 4.4 mmol/L (0.5-2.2)
[2020-07-16] MEDS ORDERED: Enoxaparin Sodium 100 MG/ML SYRINGE ONE (18:10)
[2020-07-16 18:14] LABS: CKMB 4.2 ng/mL (0-6.6)
--- NOTE | 2020-07-16 20:26 | CT ---
CT PULMONARY ANGIOGRAM WITH IV CONTRAST AND 3D POSTPROCESSIN07/16/20 HISTORY: Cough, shortness of breath, diagnosed with COVID-19 pneumonia. FINDINGS: There is good contrast opacification of the pulmonary arterial vasculature and filling defects in the distal right pulmonary artery and its branches. There are vascular calcifications without evidence of aneurysmal dilatation of the thoracic aorta. There is a filling defect in the superior vena cava which may be due to incomplete mixing of contrast and blood from the left side (injection on the right side) or a thrombus. There are small bilateral pleural effusions with adjacent infiltrates. There are changes of emphysema . Patchy opacities are seen bilaterally. There is an irregular focus of calcifications in the left lo wer lobe with an irregular 2 cm mass. The soft tissue mass is new and the calcifications were presen t on 06/29/16. 15 mm cyst in the right lobe of the liver was also seen on 06/29/16. Interval development of splenomega ly has occurred measuring 15.2 cm. There are degenerative changes in the spine. No mediastinal or hilar mass or lymphadenopathy seen. Evidence of old granulomatous disease again seen. IMPRESSION: 1. Pulmonary embolism. 2. Small bilateral pleural effusions and patchy bilateral infiltrates. 3. 2.4 cm irregular nodular density in the left lower lobe with interval changes since 06/29/16. P ossibility of malignancy cannot be excluded. PET scanning would be helpful. 4. Splenomegaly. 5. Right hepatic cyst. Discussed over the telephone with ER physician, Dr. Kia Starr at 7:32 p.m. POS: OFF
[2020-07-16 21:04] LABS: Troponin I 2.008 ng/mL (< 0.028)
[2020-07-16] MEDS ORDERED: Sodium Chloride 0.9% (PF) 10 ML VIAL FS PRN (22:21)
[2020-07-16] MEDS ORDERED: Ondansetron PF 4 MG/2 ML Vial IVP PRN (22:23)
[2020-07-16] MEDS ORDERED: Acetaminophen 500 MG TAB PO PRN (22:23)
[2020-07-16] MEDS ORDERED: Albuterol 200 PUFF (6.7GM INHALER) INH PRN (22:24)
[2020-07-16] MEDS ORDERED: Sodium Chloride 0.9% 1,000 ML IV SCH (22:30)
[2020-07-16] MEDS ORDERED: Furosemide 20 MG/2 ML VIAL SLOW IVP SCH (22:30)
[2020-07-16 22:57] LABS: Lactic Acid 1.5 mmol/L (0.5-2.2)
[2020-07-16 23:13] LABS: Troponin I 2.089 ng/mL (< 0.028)
[2020-07-17 00:14] VITALS: BMI 29.2
[2020-07-17 03:42] LABS: #Lymphocytes 0.7 thou/uL (1.20-3.40); #Monocytes 0.2 thou/uL (0.11-0.59); %Basophils 0.2 % (0.0-1.0); %Eosinophils 0.1 % (0.0-10.0); %Lymphocytes 23.5 % (21.0-51.0); %Monocytes 7.3 % (0.0-10.0); %Neutrophils 68.9 % (42.0-75.0); Hemoglobin 8.8 g/dL (14.0-18.0); Mean Corpuscular HGB CONC 33.1 g/dL (32.0-36.0); Mean Corpuscular Hemoglobin 28.2 pg (27.0-31.0); Mean Corpuscular Volume 85.3 fL (78.0-98.0); Mean Platelet Volume 15.2 fL (7.4-10.4); Platelet Count 47 thou/uL (130-400); RBC Distribution Width 19.2 % (11.5-14.5); Red Blood Cell (RBC) Count 3.13 mill/uL (4.70-6.10); White Blood Cell (WBC) Count 2.9 thou/uL (4.8-10.8)
[2020-07-17 04:02] LABS: Anion Gap 12 mmol/L (10-20); BUN (Urea Nitrogen) 23 mg/dL (8.4-25.7); Calc. Creatinine Clearance 55 mL/min (70-130); Calcium 7.9 mg/dL (7.8-10.44); Carbon Dioxide 30 mmol/L (23-31); Chloride 100 mmol/L (98-107); Estimated GFR-MDRD 46; Glucose 91 mg/dL (83-110); Potassium 4.4 mmol/L (3.5-5.1); Sodium 138 mmol/L (136-145)
[2020-07-17] MEDS: Levothyroxine Sodium 125 MCG TAB PO SCH (06:45)
--- NOTE | 2020-07-17 07:51 | RAD ---
CHEST 1 VIEW: INDICATION: History of COVID pneumonia. COMPARISON: Prior exam dated 07/16/2020. IMPRESSION: Airspace disease persists within the right lower lobe but has improved within the upper lobes. Cardi omegaly persists. No pneumothorax is evident. POS: BH
[2020-07-17] MEDS: Vancomycin 1 GM in Premix Bag 1 BAG IVPB SCH ×2 (08:32→21:13)
[2020-07-17] MEDS: Apixaban 5 MG TAB PO SCH ×2 (08:32→21:13)
[2020-07-17] MEDS: Pantoprazole 40 MG VIAL IVP SCH (08:32)
[2020-07-17] MEDS: Febuxostat 40 MG TAB PO SCH (08:33)
[2020-07-17] MEDS ORDERED: Furosemide 20 MG/2 ML VIAL SLOW IVP SCH (11:00)
--- NOTE | 2020-07-17 11:45 | HP ---
CHIEF COMPLAINT ON ADMISSION: Pulmonary embolism, right lower lobe pneumonia, exacerbation of congestive heart failure, and status post COVID. HISTORY OF PRESENT ILLNESS: The patient is a 74-year-old male who was recently hospitalized 2 weeks ago with COVID pneumonia. He never required mechanical ventilation and was sent home. He kept his transitional care appointment with Dr. Weathers' office where he was noted to still be dyspneic, pale with 2 to 3+ edema in his lower extremities. He had previously been getting low doses of Lasix during the hospitalization to help with fluid overload, and at that appointment, he was sent home with a prescription for Lasix 40 mg to use daily, reduce his salt and fluid intake. Since that time, he has been having increasing shortness of breath, and finally ended up coming to the emergency room for further evaluation. There, his neutropenia persisted. His platelets dropped. He had a slight cough. No history of fever. Denied any chest pain, but he had significant shortness of breath even at rest and on 2 L at home. His O2 saturation at home was 78% by EMS. He had no appetite. There have been no diarrhea. His leg swelling had increased from prior evaluation. The CT scan ended up showing a significantly large pulmonary emboli. His BNP was over 1300. His chest x-ray showed fluid overload and infiltrate, and he needed admission. PAST MEDICAL HISTORY: As mentioned above, recent COVID infection and hospitalization, history of chronic obstructive pulmonary disease, coronary artery disease, peripheral vascular disease, hypothyroidism, degenerative joint disease, BPH, hyperlipidemia, hypertension, gout, gastroesophageal reflux disease, hyperlipidemia, and asthma, and with his previous hospitalization possible early congestive heart failure that seemed to resolve with diuresis. PAST SURGICAL HISTORY: Includes stent to the left thigh, left hip replacement in 2008, right rotator cuff surgery, right knee surgery, back surgery in 1989, total knee replacement, tonsillectomy, sebaceous cyst surgery x3. FAMILY HISTORY: Father is . He had hypertension. Mother . She had stroke and diabetes. All his children are alive. They all have hypertension and heart disease. SOCIAL HISTORY: He is , retired . He has recently stopped smoking. His continues to smoke, although she denies exposing him to her cigarettes. Drinks alcohol daily in moderation. Denies illicit drug use. MEDICATIONS ON ADMISSION: 1. Prednisone 20 mg and a taper. 2. Terazosin 5 mg at bedtime. 3. Pantoprazole 40 mg daily. 4. Levothyroxine 125 mcg daily. 5. DuoNebs p.r.n. 6. He had finished his hydroxychloroquine and is no longer taking that. 7. Furosemide 40 mg daily. 8. Cilostazol mg b.i.d. 9. Celecoxib 200 mg daily. 10. Candesartan 8 mg daily. 11. Pulmicort neb b.i.d. 0.5 mg. 12. Atorvastatin 10 mg at bedtime. 13. Atenolol 50 mg q.a.m. 14. Aspirin 81 mg daily. 15. Allopurinol 300 mg daily. 16. Tylenol p.r.n. arthritis inflammation beyond what the celecoxib could acquire. REVIEW OF SYSTEMS: CONSTITUTIONAL: Significant for generalized weakness and fatigue, but no fever, vomiting, or diarrhea. HEENT: No drainage from eyes, ears, nose, or throat. CHEST: Has shortness of breath and cough. CARDIOVASCULAR: Denies any chest pain or palpitations. ABDOMEN: Denies nausea, vomiting, or diarrhea. GENITOURINARY: Denies any blood in urine or stool. NEUROLOGIC: Denies any exacerbation of anxiety, headaches, but his mental focus is still confused intermittently. It was noted at his last hospitalization he was found to have some mild sundowning. PHYSICAL EXAMINATION: VITAL SIGNS: Blood pressure 122/60, O2 saturation 100% on 2 L, respiratory rate at 19, temperature 97.9. He weighs 203 pounds, which is significantly up from prior hospitalization, where I think he was 193. GENERAL: Well-developed, well-nourished, alert, cooperative, male, who looks his stated age. HEENT: Normocephalic, atraumatic. Pupils with diminished reactivity to light at 2 to 3 mm. Arcus senilis bilaterally. TMs, nares, and pharynx are clear. NECK: Supple. CHEST: Rales in the right lower lobe. HEART: Regular rate and rhythm. ABDOMEN: Soft, nontender. EXTREMITIES: With 2 to 3+ edema bilaterally. SKIN: Without acute rashes or lesions. NEUROLOGIC: Cranial nerves are currently intact. Oriented x3. Gait and cerebellar function are untested. Sensory exam is grossly intact. Mental status at baseline. LABORATORY DATA: Lab work thus far shows WBCs have elevated from 2.3 to 2.9, hemoglobin is at 8.9, hematocrit 27.2, platelets have dropped from 53 to 47. No bandemia. Sodium is 138, potassium 4.4, chloride 100, CO2 of 30, BUN 23, creatinine 1.05, glucose at 91. He has a GFR of 46. He has had elevated troponin I's at 2.089. BNP is elevated at 1320. Lactic acid when he came in was 4.4 and then quickly dropped to 2 and is currently 1.5. PT is 17.1, INR 1.4, APTT is 33.8. CT of the chest that showed pulmonary embolism, small bilateral pleural effusions, patchy bilateral infiltrates. 2.4 irregular nodular density in the left lower lobe with interval changes from 06/29/2016. We will have to work that up with a PET scan in the future. He also has splenomegaly and right hepatic cyst. ASSESSMENT: 1. Pulmonary embolism. 2. Non-ST segment elevation myocardial infarction. 3. Right lower lobe pneumonia. 4. Congestive heart failure with exacerbation. 5. Status post COVID pneumonia. 6. Hypersplenism with low platelets and splenomegaly. 7. 2.4 cm left lower lobe mass. PLAN: [facility] care. Consultation with Pulmonology and Cardiology as well as Oncology to determine the best route for his long-term management whether he may benefit from a green filter versus long-term anticoagulation in light of his low platelets. He will eventually need workup for the left lower lobe mass. We will continue on his antibiotics. We will continue gentle diuresis, which has improved his pulmonary function significantly and serially re-evaluate him. Job ID: [id number]
[2020-07-17] MEDS: Sodium Chloride 0.45% 1,000 ML IV SCH (12:04)
--- NOTE | 2020-07-17 12:18 | CON ---
DATE OF CONSULTATION: 07/17/2020 REASON FOR CONSULTATION: Pulmonary embolism. HISTORY OF PRESENT ILLNESS: The patient is a 74-year-old male who had a near syncopal event when standing up yesterday. He came to the emergency room. He was imaged. He was found to have a large right-sided pulmonary embolism. The patient was hospitalized several weeks ago with COVID-19 pneumonia and has been recovering at home on low-flow oxygen. He was not taking any type of anticoagulation at home that he recalls. PAST MEDICAL HISTORY: 1. COVID-19 pneumonia. 2. Hypothyroidism. 3. Acid reflux. 4. Hyperlipidemia. 5. Gout. 6. Chronic obstructive pulmonary disease. 7. Hypertension. PAST SURGICAL HISTORY: 1. Rotator cuff surgery. 2. Hip surgery. 3. Right knee surgery. 4. Back surgery. SOCIAL HISTORY: Quit smoking some time ago. Does not drink alcohol. MEDICATIONS: Prior to admission: 1. Prednisone. 2. Terazosin. 3. Pantoprazole. 4. Levothyroxine. 5. DuoNeb. 6. Plaquenil. 7. Furosemide. 8. Cilostazol. 9. Celebrex. 10. Candesartan. 11. Pulmicort. 12. Lipitor. 13. Tenormin. 14. Aspirin. 15. Allopurinol. 16. Acetaminophen. REVIEW OF SYSTEMS: Remarkable for shortness of breath. Otherwise, negative. PHYSICAL EXAMINATION: VITAL SIGNS: Temperature 98.3, pulse 68, blood pressure 139/54, and O2 saturation 99%. GENERAL: He is awake, alert, and in no distress. HEENT: Unremarkable. NECK: No adenopathy or JVD. LUNGS: Clear anteriorly but crackles at the bases posteriorly. CARDIOVASCULAR: S1 and S2, regular. ABDOMEN: Soft and nontender. EXTREMITIES: No clubbing or cyanosis. He has 2+ edema from the knees downward. LABORATORY DATA: White blood cell count 2.9, hematocrit 26.7, and platelet count 47. INR 1.4. Sodium 138, potassium 4.4, chloride 100, CO2 of 30, BUN 23, creatinine 1.5, and glucose 91. BNP 1320. ASSESSMENT: 1. Pulmonary embolism. 2. Fairly profound thrombocytopenia. 3. Recent COVID-19 pneumonia. 4. Underlying chronic obstructive pulmonary disease. RECOMMENDATIONS: 1. I would watch his platelet count and hemoglobin and hematocrit very closely given the low platelet count. If either decrease then I would switch the Eliquis to Arixtra. 2. If he is able tolerate anticoagulation, total duration should be [address] scan showed what looked like a possible mass in the left lower lobe. This does have a pleural-based connection, so it may be left over from the recent COVID infection. This warrants being followed with a repeat CT scan in about 3 months. The patient does see Dr. Perla in the office. 4. COVID-19 isolation can be discontinued as he is far enough from the initial infection, where he is no longer a danger to others. Job ID: [id number]
--- NOTE | 2020-07-17 17:42 | CON ---
DATE OF CONSULTATION: HISTORY OF PRESENT ILLNESS: Nirav Wisdom is a 74-year-old white male, patient of Dr. Garcia, who is admitted with pulmonary embolism. He has history of previous coronary artery disease, which was mild. Also in 2018, he had a negative Cardiolite test here. He was hospitalized here earlier this month with COVID-positive pneumonia and was sent home on oxygen. He then noticed last night that he became acutely short of breath and could not stand up. Paramedics were called, and chest CTA revealed bilateral pulmonary emboli. He denies any chest discomfort and at the present time states his breathing is doing well. PAST MEDICAL HISTORY: Coronary artery disease; peripheral vascular disease, status post stent placement in the left femoral system; hypertension; COPD; hyperlipidemia; BPH; and hypothyroidism. OPERATIONS: Rotator cuff surgery, knee surgery, back surgery, tonsillectomy, and removal of sebaceous cyst. SOCIAL HISTORY: He smoked in the past. FAMILY HISTORY: Positive for coronary artery disease. MEDICATIONS: 1. Citalopram 300 mg q.p.m. 2. Aspirin 81 daily. 3. Atenolol, unknown dose q.a.m. 4. Atorvastatin 10 at bedtime. 5. Pulmicort inhaler b.i.d. 6. Cilexetil 8 mg q.a.m. 7. Celebrex q.a.m. 8. Cilostazol b.i.d. 9. Furosemide 40 mg daily. 10. Plaquenil b.i.d. 11. DuoNebs q.i.d. 12. Levothyroxine 125 mcg q.a.m. 13. Prednisone 20 mg q.a.m. 14. Hytrin 5 mg at bedtime. 15. Protonix 40 q.a.m. ALLERGIES: NONE. REVIEW OF SYSTEMS: A 10-point review of systems is otherwise unremarkable. PHYSICAL EXAMINATION: VITAL SIGNS: 115/61, pulse is 69. HEENT: PERRL. NECK: Supple. CHEST: Reveals crackles at the bases posteriorly. CARDIOVASCULAR: S1 and S2 are normal without any S3, S4, or murmurs. ABDOMEN: Normal bowel sounds without tenderness. EXTREMITIES: Reveal 1-2+ edema. NEUROLOGIC: Grossly intact. SKIN: Warm and dry. LABORATORY DATA: EKG revealed sinus arrhythmia with T-wave inversion in V3 through V6. Hemoglobin 8.8, hematocrit 26.7, white count 2900, and platelets 47,000. INR 1.4. Sodium 138, potassium 4.4, chloride 100, carbon dioxide 30, BUN 23, and creatinine 1.50. Troponin I 2.089. BNP 1320.1. IMPRESSION: 1. Bilateral pulmonary emboli on chest CTA. 2. The patient is recovering from COVID-19 pneumonia, on home oxygen. 3. [id number] myocardial infarction, probably type 2. 4. Mild coronary artery disease. 5. Peripheral vascular disease. 6. Hyperlipidemia. 7. Chronic renal insufficiency. 8. Hypertension. PLAN: The patient currently is on Eliquis 10 mg b.i.d. for treatment of his bilateral pulmonary emboli. We will continue to follow the patient with you. Job ID: [id number] RAMY
[2020-07-17] MEDS: Mometasone Furoate 120 PUFF 220 MCG INH SCH (20:00)
[2020-07-17] MEDS ORDERED: Prevnar 13-Val Conj/PF 0.5 ML SYRINGE IM ONE (21:00)
[2020-07-17] MEDS: Atorvastatin Calcium 10 MG TAB PO SCH (21:13)
--- NOTE | 2020-07-17 22:56 | CON ---
DATE OF CONSULTATION: REASON FOR CONSULTATION: Thrombocytopenia. HISTORY OF PRESENT ILLNESS: This is a 74-year-old male, who 2 to 3 years ago, was evaluated by Dr. Schmidt for thrombocytopenia. Evaluation included a bone marrow. The patient could not provide the details, but apparently the bone marrow was normal and no treatment was initiated. While looking to [facility], he had a platelet count off 104,216 and 87,000 in May 2018. He was hospitalized on July 01 with COVID infection and was discharged on July 09. He was admitted at this time through emergency room on July 16, when he presented with shortness of breath and was found to have pulmonary embolus. His admitting diagnosis included non-ST segment elevation myocardial infarction, right lower lobe pneumonia, congestive cardiac failure, and 2.4 cm left lower pulmonary mass. CBC on 07/16/2020 showed WBC of 2300, hemoglobin 8.9, and a platelet count of 53,000. Differential showed 73% neutrophils, 3 bands, 10 lymphocytes, and 14 monocytes. MCV was 85.4. It should be noted that the patient was severely neutropenic during hospitalization in first part of June when his WBC on 07/08/2020 was 900. Platelet count at that time was 156,000 and hemoglobin was 8.2. The patient was initially started on Lovenox, which has been switched to Eliquis. As outpatient, he was taking cilostazol and aspirin. These have been discontinued. The patient denies of bleeding from any site. He denies a fever. He admits of shortness of breath and fatigue and has been oxygen dependent all along. PAST MEDICAL HISTORY: Positive for chronic obstructive pulmonary disease, coronary artery disease, peripheral vascular disease, hypothyroidism, benign prostatic hypertrophy, hypertension, gout, GERD, asthma and CHF. PAST SURGICAL HISTORY: Include stent in the left thigh, left hip replacement, right knee surgery, back surgery, and total knee replacement. PERSONAL/SOCIAL HISTORY: The patient is . He quit smoking recently and drinks alcohol daily. He denies of drug use. FAMILY HISTORY: Positive for hypertension and heart disease. OUTPATIENT MEDICATIONS: Include; 1. Prednisone 20 mg p.o. daily with a taper. 2. Terazosin. 3. Pantoprazole. 4. Synthroid. 5. DuoNeb. 6. Lasix. 7. Cilostazol. 8. Celebrex. 9. Candesartan. 10. Pulmicort. 11. Atorvastatin. 12. Atenolol. 13. Aspirin. 14. Allopurinol. 15. Tylenol. CURRENT MEDICATIONS: 1. Eliquis 10 mg p.o. b.i.d. 2. Atorvastatin 10 mg p.o. daily. 3. Uloric 80 mg p.o. daily. 4. Synthroid 125 mcg p.o. daily. 5. Asmanex inhaler. 6. Zofran p.r.n. 7. Protonix. 8. Vancomycin. REVIEW OF SYSTEMS: As above. He denies of headache, diplopia, unequal extremity weakness, blood in urine, or blood in stool. Positive findings include fatigue and shortness of breath. PHYSICAL EXAMINATION: GENERAL: The patient appears appropriate for his age and is alert and oriented. VITAL SIGNS: He has been afebrile throughout this hospitalization. Temperature today 97.4, respirations 16, and blood pressure 123/63. HEENT: Unremarkable. There is no peripheral lymphadenopathy. CHEST: Vesicular breath sounds of equal intensity. HEART: Regular rhythm. S1 and S2. ABDOMEN: Soft. Bowel sounds present. EXTREMITIES: 1 to 2+ edema bilaterally. SKIN: No purpuric spots. LABORATORY DATA: CBC today shows WBC 2900, hemoglobin 8.8 g, MCV 85.3, and platelet 47,000. Differential shows 58.9% neutrophils and 23.5% lymphocytes. Chemistry profile shows bilirubin 2.3, AST 234, and ALT 237. Serum creatinine and calcium are normal. PTT 33 and PT/INR 1.4. CT angio showed a 2.4 cm left lower lobe mass, pulmonary embolus, and splenomegaly with the spleen measuring 15.2 cm. ASSESSMENT AND RECOMMENDATION: This patient has leukopenia, which is improving. He is moderately thrombocytopenic. He also has a history of what seems to be chronic ITP and enlarged spleen, which could be contributing to thrombocytopenia. The patient had received Lovenox during the previous hospitalization and this raises the possibility of heparin-induced thrombocytopenia and he had a score of 7 on 4T scale. For now, I will recommend continuing the patient on Eliquis and continue withholding aspirin and cilostazol. He will have daily CBC. I do not favor inferior vena cava filter at the present time. Thanks very much for allowing me to participate in this patient's care. I will follow him along with you. Job ID: [id number]
[2020-07-18] MEDS: Sodium Chloride 0.45% 1,000 ML IV SCH (01:53)
[2020-07-18 04:12] LABS: Anion Gap 11 mmol/L (10-20); BUN (Urea Nitrogen) 17 mg/dL (8.4-25.7); Calc. Creatinine Clearance 99 mL/min (70-130); Calcium 7.8 mg/dL (7.8-10.44); Carbon Dioxide 31 mmol/L (23-31); Chloride 98 mmol/L (98-107); Estimated GFR-MDRD 90; Glucose 101 mg/dL (83-110); Potassium 3.5 mmol/L (3.5-5.1); Sodium 136 mmol/L (136-145)
[2020-07-18 04:15] LABS: Reticulocyte Count 2.7 % (0.5-1.5)
[2020-07-18 04:24] LABS: Band 3 % (5-11); Elliptocytes SLIGHT = 2-5 cells (100X) (0-1/hpf); Hemoglobin 8.6 g/dL (14.0-18.0); Lymphocytes 16 % (21-51); MDiff Complete? YES; Mean Corpuscular HGB CONC 32.3 g/dL (32.0-36.0); Mean Corpuscular Hemoglobin 27.6 pg (27.0-31.0); Mean Corpuscular Volume 85.6 fL (78.0-98.0); Mean Platelet Volume 9.3 fL (7.4-10.4); Monocytes 7 % (0-10); Neutrophil 74 % (42-75); Platelet Count 42 thou/uL (130-400); Platelet Morphology Comment Appears Decreased; RBC Distribution Width 19.3 % (11.5-14.5); Red Blood Cell (RBC) Count 3.11 mill/uL (4.70-6.10)
[2020-07-18] MEDS: Levothyroxine Sodium 125 MCG TAB PO SCH (05:56)
--- NOTE | 2020-07-18 06:52 | RAD ---
CHEST ONE VIEW: INDICATIONS: History of COVID pneumonia and PE. COMPARISON: Prior exam dated 07/17/2020. IMPRESSION: Bilateral air space disease, cardiomegaly and chronic lung changes are stable. No pneumothorax is mushtaq dent. Osseous structures are unchanged. POS: BH
[2020-07-18] MEDS: Apixaban 5 MG TAB PO SCH ×2 (09:12→20:20)
[2020-07-18] MEDS: Febuxostat 40 MG TAB PO SCH (09:20)
[2020-07-18] MEDS: Vancomycin 1 GM in Premix Bag 1 BAG IVPB SCH ×2 (09:21→20:20)
[2020-07-18] MEDS: Pantoprazole 40 MG VIAL IVP SCH (09:21)
[2020-07-18] MEDS ORDERED: Furosemide 40 MG/4 ML VIAL SLOW IVP SCH (11:15)
--- NOTE | 2020-07-18 12:34 | PRG ---
DATE OF SERVICE: 07/18/2020 SUBJECTIVE: Mr. Wisdom feels a little better today. He had no acute complaints. OBJECTIVE: VITAL SIGNS: Temperature 98.6, pulse 82, blood pressure 137/71, O2 saturation 93%. HEENT: Unremarkable. NECK: No JVD. LUNGS: Poor air movement. CARDIAC: S1 and S2. Regular. ABDOMEN: Soft. EXTREMITIES: No edema. LABORATORY DATA: Sodium 136, potassium 3.5, BUN 17, creatinine 0.8. White blood cell count 3, hematocrit 26.7, and platelet count 42. ASSESSMENT: 1. Pulmonary embolism. 2. Thrombocytopenia. 3. Recent COVID-19 pneumonia. 4. Underlying chronic obstructive pulmonary disease. PLAN: Continue Eliquis. Total duration of anticoagulation should be 6 months. He will need to be closely followed in terms of his H and H and platelet count. Can transfer out to telemetry anytime. Job ID: [id number]
[2020-07-18] MEDS: Mometasone Furoate 120 PUFF 220 MCG INH SCH (19:04)
[2020-07-18] MEDS: Atorvastatin Calcium 10 MG TAB PO SCH (20:20)
[2020-07-19 04:37] LABS: Anion Gap 11 mmol/L (10-20); BUN (Urea Nitrogen) 11 mg/dL (8.4-25.7); Calc. Creatinine Clearance 113 mL/min (70-130); Calcium 7.9 mg/dL (7.8-10.44); Carbon Dioxide 33 mmol/L (23-31); Chloride 96 mmol/L (98-107); Estimated GFR-MDRD Greater than 90; Glucose 103 mg/dL (83-110); Potassium 3.2 mmol/L (3.5-5.1); Sodium 137 mmol/L (136-145)
[2020-07-19 04:46] LABS: #Lymphocytes 0.5 thou/uL (1.20-3.40); #Monocytes 0.2 thou/uL (0.11-0.59); #Neutrophils 1.3 thou/uL (1.40-6.50); %Basophils 0.8 % (0.0-1.0); %Eosinophils 0.8 % (0.0-10.0); %Lymphocytes 25.8 % (21.0-51.0); %Monocytes 9.9 % (0.0-10.0); %Neutrophils 62.7 % (42.0-75.0); Mean Corpuscular Hemoglobin 27.6 pg (27.0-31.0); Mean Platelet Volume 7.9 fL (7.4-10.4); Platelet Count 46 thou/uL (130-400); Red Blood Cell (RBC) Count 3.25 mill/uL (4.70-6.10)
[2020-07-19] MEDS: Levothyroxine Sodium 125 MCG TAB PO SCH (05:04)
--- NOTE | 2020-07-19 08:30 | RAD ---
PORTABLE CHEST: HISTORY: CHF, COVID. COMPARISON: 07/18/2020. FINDINGS: There are hazy patchy peripheral infiltrates bilaterally which do not appear significantly changed fr om 07/18/2020. IMPRESSION: Bilateral infiltrates are not significantly changed from yesterday. POS: [facility]
[2020-07-19] MEDS: Vancomycin 1 GM in Premix Bag 1 BAG IVPB SCH ×2 (09:10→20:03)
[2020-07-19] MEDS: Apixaban 5 MG TAB PO SCH ×2 (09:11→20:02)
[2020-07-19] MEDS: Pantoprazole 40 MG VIAL IVP SCH (09:12)
[2020-07-19] MEDS: Febuxostat 40 MG TAB PO SCH (09:12)
[2020-07-19] MEDS ORDERED: Furosemide 40 MG TAB PO SCH (09:45)
[2020-07-19] MEDS ORDERED: Potassium Chloride 20 MEQ TAB PO SCH (09:45)
--- NOTE | 2020-07-19 10:35 | PRG ---
DATE OF SERVICE: 07/19/2020 SUBJECTIVE: The patient is doing reasonably well except for some nasal bleeding. OBJECTIVE: VITAL SIGNS: Temperature 97.8, pulse 74, respirations 20, O2 saturations 96% on 5 L, blood pressure 124/60. HEENT: Clear. NECK: No JVD. LUNGS: With inspiratory crackles. CARDIAC: S1 and S2, regular. ABDOMEN: Soft. EXTREMITIES: No edema. LABORATORY DATA: White blood cell count 2, hematocrit 28, and platelet count 46. Sodium 137, potassium 3.2, chloride 96, CO2 of 33, BUN 11, creatinine 0.7, and glucose 103. Echocardiogram showed some diastolic dysfunction and mild aortic stenosis. Chest x-ray shows interstitial changes bilaterally. ASSESSMENT: 1. Pulmonary embolism. 2. COVID-19 pneumonia, in resolution phase. PLAN: The patient remains on Eliquis. He may actually need to be on a lower dose because of his platelet count and risk for bleeding. He may require home oxygen at the time of discharge. Job ID: [id number]
[2020-07-19] MEDS: Sodium Chloride 0.45% 1,000 ML IV SCH (14:34)
--- NOTE | 2020-07-19 16:40 | PDOC.MOPN ---
Interval History: sitting in chair, feels better today. - Vital Signs Vital Signs: Vital Signs (12 hours) Temp Pulse Resp BP Pulse Ox 07/19/20 10:56 97.6 F 68 20 117/57 L 99 07/19/20 07:39 97.8 F 74 20 124/60 96 07/19/20 07:30 96 07/19/20 04:51 97.6 F 88 18 144/74 H 96 Weight Weight 200 lb 14.4 oz Most Recent Monitor Data Heart Rate from ECG 77 NIBP 123/63 NIBP BP-Mean 83 Respiration from ECG 22 SpO2 97 - Physical Exam General: Alert, Oriented x3, No acute distress HEENT: Atraumatic, PERRLA, EOMI, Mucous membr. moist/pink Lungs: Other Cardiovascular: Regular rate Abdomen: Normal bowel sounds Extremities: Other (2+ edema feet) Neurological: Normal speech - Labs Result Diagrams: 07/19/20 03:27 07/19/20 03:27 Lab results: Laboratory Results - last 24 hr 07/19/20 03:27: WBC 2.0 L, RBC 3.25 L, Hgb 9.0 L, Hct 28.0 L, MCV 86.0, MCH 27.6 , MCHC 32.0, RDW 19.0 H, Plt Count 46 L, MPV 7.9, Neutrophils % 62.7, Lymphocytes % 25.8, Monocytes % 9.9, Eosinophils % 0.8, Basophils % 0.8, Neutrophils # 1.3 L, Lymphocytes # 0.5 L, Monocytes # 0.2, Eosinophils # 0.0, Basophils # 0.0 07/19/20 03:27: Sodium 137, Potassium 3.2 L, Chloride 96 L, Carbon Dioxide 33 H , Anion Gap 11, BUN 11, Creatinine 0.73, Estimated GFR (MDRD) Greater than 90, Glucose 103, Calcium 7.9 Status: lab reviewed by me A/P - Problem (1) Pulmonary embolism Current Visit: Yes Code(s): I26.99 - OTHER PULMONARY EMBOLISM WITHOUT ACUTE COR PULMONALE Status: Acute (2) Leukopenia Current Visit: Yes Code(s): D72.819 - DECREASED WHITE BLOOD CELL COUNT, UNSPECIFIED Status: Acute (3) Thrombocytopenia Current Visit: Yes Code(s): D69.6 - THROMBOCYTOPENIA, UNSPECIFIED Status: Acute (4) Anemia Current Visit: Yes Code(s): D64.9 - ANEMIA, UNSPECIFIED Status: Acute (5) COPD (chronic obstructive pulmonary disease) Current Visit: No Status: Acute - Plan Plan: On Eliquis for PE, no bleeding CBC stable although all counts low Has seen Dr. Salinas recently, plan follow-up next week in clinic for CBC
[2020-07-19] MEDS: Potassium Chloride 20 MEQ TAB PO SCH (16:48)
[2020-07-19] MEDS: Mometasone Furoate 120 PUFF 220 MCG INH SCH (19:43)
[2020-07-19] MEDS: Atorvastatin Calcium 10 MG TAB PO SCH (20:03)
[2020-07-20 04:48] LABS: Anion Gap 10 mmol/L (10-20); BUN (Urea Nitrogen) 6 mg/dL (8.4-25.7); Calc. Creatinine Clearance 116 mL/min (70-130); Calcium 8.3 mg/dL (7.8-10.44); Carbon Dioxide 35 mmol/L (23-31); Chloride 95 mmol/L (98-107); Estimated GFR-MDRD Greater than 90; Glucose 98 mg/dL (83-110); Potassium 3.3 mmol/L (3.5-5.1); Sodium 137 mmol/L (136-145)
[2020-07-20 04:53] LABS: Hemoglobin 9.5 g/dL (14.0-18.0); Lymphocytes 26 % (21-51); MDiff Complete? YES; Mean Corpuscular HGB CONC 31.5 g/dL (32.0-36.0); Mean Corpuscular Hemoglobin 27.5 pg (27.0-31.0); Mean Platelet Volume 11.4 fL (7.4-10.4); Monocytes 12 % (0-10); Neutrophil 62 % (42-75); Platelet Count 44 thou/uL (130-400); Platelet Morphology Comment Appears Decreased; Red Blood Cell (RBC) Count 3.47 mill/uL (4.70-6.10); White Blood Cell (WBC) Count 1.9 thou/uL (4.8-10.8)
[2020-07-20] MEDS: Levothyroxine Sodium 125 MCG TAB PO SCH (05:45)
--- NOTE | 2020-07-20 07:14 | RAD ---
CHEST 1 VIEW: Date: 07/20/2020 INDICATION: 74-year-old male with pneumonia. COMPARISON: Prior exam dated 07/19/2020. IMPRESSION: Bilateral air space disease and cardiomegaly are stable. No pleural effusion or pneumothorax is evide nt. Osseous structures are unchanged. POS: BH
[2020-07-20] MEDS ORDERED: Furosemide 40 MG TAB PO SCH ×3 (08:30→14:00)
[2020-07-20] MEDS: Potassium Chloride 20 MEQ TAB PO SCH ×5 (08:35→20:02)
[2020-07-20] MEDS: Febuxostat 40 MG TAB PO SCH (08:35)
[2020-07-20] MEDS: Apixaban 5 MG TAB PO SCH ×2 (08:35→20:02)
[2020-07-20] MEDS: Pantoprazole 40 MG VIAL IVP SCH (08:36)
[2020-07-20] MEDS: Vancomycin 1 GM in Premix Bag 1 BAG IVPB SCH ×2 (08:47→20:00)
--- NOTE | 2020-07-20 09:15 | PQF ---
CLINICAL DOCUMENTATION CLARIFICATION FORM: Dear Dr. Freddy DYER Date: , 07/21/2020 1247 Please exercise your independent, professional judgment in responding to the clarification form. Clinical indicators areprovided on the bottom of this form for your review. Please check appropriate box(es): [ x ] Acute On Chronic Respiratory Failure: [ x] with Hypoxia [ ] with Hypercapnia [ ] Acute Respiratory Failure due to: (etiology) [ ] Chronic Respiratory Failure only [ ] Hypoxia [ x ] Other diagnosis ___Covid Pneumonia [ ] Unable to determine In addition, please specify: Present on Admission (POA): [ X ] Yes [ ] No [ ] Unable to determine For continuity of documentation, please document condition throughout progress notes and discharge summary. Thank You. To be completed by CDI/Coding staff for physician review: CLINICAL INDICATORS - SIGNS / SYMPTOMS / LABS / RESULTS AND LOCATION IN MR 07/16 ED REPORT: C/O WEAKNESS, SOB AND DEHYDRATION. COVID + 2-3 WEEKS AGO. ADMITTED FOR 8 DAYS WITH PNEUMONIA ON 07/01. PT WAS ON HOME O2 AT 2L. ROOM AIR SAT 78%, 4L/NC PT GOT TO LOW 80S. PT SWITCHED TO NRB, GOT TO LOW 90, RESPIRATIONS 28. 07/17 CONSULT (JEAN) IMPRESSION : 2). THE PATIENT IS RECOVERING FROM COVID - 19 PNEUMONIA, ON HOME OXYGEN. RISK FACTORS/ RESULTS AND LOCATION IN MR HX: COVID + 2-3 WEEKS AGO, COPD; DX LARGE RT SIDE PULMONARY EMBOLISM (CONSULT/ IRASEMA) 07/17 TREATMENTS / RESULTS AND LOCATION IN MR PULMONOLOGY CONSULT (IRASEMA/ 07/17) SUPPLEMENTAL OXYGEN (07/16 PRESENT) Acute Respiratory Failure: ABG pH < 7.35 or > 7.45; Decreased oxygen saturation (<90% room air or < 95% on oxygen); PCO2 > 50 mm Hg; PO2 < 60 mm Hg; Labored or rapid respirations ARDS: Dx Criteria [[place] ARDS]: Respiratory symptoms within one week of a known clinical insult (e.g. shock, infection, surgery, trauma) Bilateral opacities in CXR/Chest CT not due to CHF or fluid THANK YOU! CDS Signature: Mei Reyes RN Phone #: [phone] Date : 07/20/2020 This is a permanent part of the Medical Record [facility]
--- NOTE | 2020-07-20 10:01 | PQF ---
CLINICAL DOCUMENTATION CLARIFICATION FORM: Dear Dr. Freddy DYER Date: 07/20/2020, 07/21/2020 1240 Please exercise your independent, professional judgment in responding to the clarification form. Clinical indicators are provided on the bottom of this form for your review. Please check appropriate box(es): CONGESTIVE HEART FAILURE: A. ACUITY [ ] Acute [ x ] Acute on Chronic [ ] Chronic B. TYPE: [ ] Systolic / HFrEF [ x ] Diastolic / HFpEF [ ] Combined Systolic / Diastolic [ ] Hypertensive Heart Disease [ ] Other diagnosis [ ] Unable to determine In addition, please specify: Present on Admission (POA): [ x ] Yes [ ] No [ ] Unable to determine For continuity of documentation, please document condition throughout progress notes and discharge summary. Thank You. To be completed by CDI/Coding staff for physician review: CLINICAL INDICATORS - SIGNS / SYMPTOMS / LABS / RESULTS AND LOCATION IN EMR 07/16 BNP 1270.5 07/17 BNP 1320.1 07/16 H&P (MANISHA) HPI: AT TRANSITIONAL CARE APPOINTMENT WITH DR. DYER OFFICE WHERE HE WAS NOTED TO STILL BE DYSPNEIC, PALE WITH 2-3 + EDEMA IN HIS LOWER EXTREMITIES. HIS CHEST X-RAY SHOWED OVERLOAD AND INFILTRATE, AND HE NEEDED ADMISSION. ASSESSMENT: PULMONARY EMBOLISM, NSTEMI, RT LOWER LOBE PNEUMONIA, CONGESTIVE HEART FAILURE EXACERBATION, STATUS POST COVID PNEUMONIA, HYPERSPLENIA, WITH LOW PLATELETS AND SPLENOMEGALY. LT LOWER LOBE MASS. 07/18 ECHO REPORT: EF 55-60%, E/A FLOW REVERSAL NOTED. SUGGESTIVE OF DIASTOLIC DYSFUNCTION. RISKS FACTORS / RESULTS AND LOCATION IN EMR ADVANCED AGE (74), ELEVATED BNP, DX PNEUMONIA, CHF EXACERBATION ( H&P/MANISHA) TREATMENTS / RESULTS AND LOCATION IN EMR CARDIOLOGY CONSULT (JEAN / 07/17) SERIAL CXR ( 07/16 PRESENT) ECHO 07/18 LASIX 40 MG PO ( 07/20) SUPPLEMENTAL O2 ( 07/16- PRESENT) THANK YOU! CDS Signature: WALESKA GILBERT RN Phone #: [phone] Date: 07/20/2020 This is a permanent part of the Medical Record [facility]
--- NOTE | 2020-07-20 11:30 | PRG ---
DATE OF SERVICE: 07/20/2020 SUBJECTIVE: Overall doing well. No complaints. OBJECTIVE: VITAL SIGNS: Temperature 98.6, pulse 77, respirations 20, O2 saturation 99% on 4 L, blood pressure 147/72. HEENT: Unremarkable. NECK: No JVD. LUNGS: Few crackles in the bases. CARDIAC: S1, S2. Regular. ABDOMEN: Soft. EXTREMITIES: No edema. LABORATORY DATA: White blood cell count 1.9, hematocrit 30, and platelet count 44. Sodium 137, potassium 3.3, BUN 6, creatinine 0.7, and glucose 98. ASSESSMENT: 1. Pulmonary embolism. 2. Status post COVID-19 infection. PLAN: Probably stable for discharge on anticoagulation, but needs to have his hemoglobin and hematocrit and platelet count watched closely. Total duration of anticoagulation should be 6 months. Job ID: [id number]
[2020-07-20] MEDS: Mometasone Furoate 120 PUFF 220 MCG INH SCH (18:35)
[2020-07-20] MEDS: Atorvastatin Calcium 10 MG TAB PO SCH (20:02)
[2020-07-21 04:07] LABS: BUN (Urea Nitrogen) 6 mg/dL (8.4-25.7); Calc. Creatinine Clearance 108 mL/min (70-130); Calcium 8.6 mg/dL (7.8-10.44); Estimated GFR-MDRD Greater than 90; Glucose 99 mg/dL (83-110)
[2020-07-21 04:16] LABS: Anion Gap 16 mmol/L (10-20); Carbon Dioxide 40 mmol/L (23-31); Chloride 89 mmol/L (98-107); Potassium 3.6 mmol/L (3.5-5.1); Sodium 141 mmol/L (136-145)
[2020-07-21] MEDS: Levothyroxine Sodium 125 MCG TAB PO SCH (05:08)
[2020-07-21 08:14] VITALS: BP 158/73; TEMP 98.1
[2020-07-21] MEDS: Apixaban 5 MG TAB PO SCH (09:28)
[2020-07-21] MEDS: Potassium Chloride 20 MEQ TAB PO SCH ×2 (09:28→09:35)
[2020-07-21] MEDS: Vancomycin 1 GM in Premix Bag 1 BAG IVPB SCH (09:29)
[2020-07-21] MEDS: Febuxostat 40 MG TAB PO SCH (09:29)
[2020-07-21] MEDS: Pantoprazole 40 MG VIAL IVP SCH (09:30)
--- NOTE | 2020-07-21 10:13 | PDOC.MOPN ---
Interval History: feels better, breathing ok. - Vital Signs Vital Signs: Vital Signs (12 hours) Temp Pulse Resp BP BP Pulse Ox 07/21/20 08:00 98.1 F 78 20 158/73 H 95 07/21/20 03:59 97.3 F L 79 20 151/87 H 99 07/20/20 23:40 72 139/65 97 Weight Weight 198 lb 1.6 oz Most Recent Monitor Data Heart Rate from ECG 77 NIBP 123/63 NIBP BP-Mean 83 Respiration from ECG 22 SpO2 97 - Physical Exam General: Alert, Oriented x3, No acute distress HEENT: Atraumatic, PERRLA, EOMI, Mucous membr. moist/pink Lungs: Other (diminished) Cardiovascular: Regular rate Extremities: Other (2+ BLE) Neurological: Normal speech - Labs Result Diagrams: 07/20/20 03:37 07/21/20 03:21 Lab results: Laboratory Results - last 24 hr 07/21/20 03:21: Sodium 141, Potassium 3.6, Chloride 89 L, Carbon Dioxide 40 H, Anion Gap 16, BUN 6 L, Creatinine 0.74, Estimated GFR (MDRD) Greater than 90, Glucose 99, Calcium 8.6 Status: lab reviewed by me A/P - Problem (1) Pulmonary embolism Current Visit: Yes Code(s): I26.99 - OTHER PULMONARY EMBOLISM WITHOUT ACUTE COR PULMONALE Status: Acute (2) Leukopenia Current Visit: Yes Code(s): D72.819 - DECREASED WHITE BLOOD CELL COUNT, UNSPECIFIED Status: Acute (3) Thrombocytopenia Current Visit: Yes Code(s): D69.6 - THROMBOCYTOPENIA, UNSPECIFIED Status: Acute (4) Anemia Current Visit: Yes Code(s): D64.9 - ANEMIA, UNSPECIFIED Status: Acute (5) COPD (chronic obstructive pulmonary disease) Current Visit: No Status: Acute - Plan Plan: Patient has been discharged home denies any bleeding issues, breathing stable follow-up Dr. Salinas in 3 weeks, appt given to patient.
--- NOTE | 2020-07-24 15:46 | EKG ---
Test Reason : SOB Blood Pressure : / mmHG Vent. Rate : 074 BPM Atrial Rate : 074 BPM P-R Int : 122 ms QRS Dur : 086 ms QT Int : 424 ms P-R-T Axes : 058 050 181 degrees QTc Int : 470 ms Sinus rhythm with marked sinus arrhythmia T wave abnormality, consider anterolateral ischemia Prolonged QT Abnormal ECG New T wave inversions compared to prior EKG Confirmed by GLORIA LONG DO ([id number]), video tape editor CHATA CARLISLE ([id number]) on 07/24/2020 3:46:06 PM Referred By: JOHN PINON Confirmed By:GLORIA LONG DO
== END 2020-07-21 10:48 | disposition home or self-care (01) | DRG 871 ==
LOC: ERS 16:44 → IMCU/EMU 20:08 → 2NO 07-18 15:18
PROVIDERS: ADMIT Specialist; ATTEND Specialist
DX: A41.9 Sepsis, unspecified organism (principal); I50.33 Acute on chronic diastolic (congestive) heart failure; J96.21 Acute and chronic respiratory failure with hypoxia; R65.21 Severe sepsis with septic shock; I21.4 Non-ST elevation (NSTEMI) myocardial infarction; J18.9 Pneumonia, unspecified organism; I26.99 Other pulmonary embolism without acute cor pulmonale; J44.0 Chronic obstructive pulmonary disease with (acute) lower respiratory infection; I13.0 Hypertensive heart and chronic kidney disease with heart failure and stage 1 through stage 4 chronic kidney disease, or unspecified chronic kidney disease; D69.3 Immune thrombocytopenic purpura; Z86.19 Personal history of other infectious and parasitic diseases; D73.81 Neutropenic splenomegaly; E03.9 Hypothyroidism, unspecified; K21.9 Gastro-esophageal reflux disease without esophagitis; M10.9 Gout, unspecified; I25.10 Atherosclerotic heart disease of native coronary artery without angina pectoris; D64.9 Anemia, unspecified; N40.0 Benign prostatic hyperplasia without lower urinary tract symptoms; N18.9 Chronic kidney disease, unspecified; I73.9 Peripheral vascular disease, unspecified; Z96.642 Presence of left artificial hip joint; Z79.899 Other long term (current) drug therapy; Z87.891 Personal history of nicotine dependence; Z79.82 Long term (current) use of aspirin; Z79.890 Hormone replacement therapy; Z99.81 Dependence on supplemental oxygen; Z79.51 Long term (current) use of inhaled steroids
CPT/HCPCS: 36415; 71045; 71275; 80048; 80053; 82553; 83605; 83615; 83880; 84484; 85007; 85025; 85027; 85046; 85610; 85730; 87040; 93005; 93306; 94760; 96361; 96365; 96366; 96367; 96372; 97139; C9113; J0692; J1650; J1940; J1956; J3370; J7030; Q9967

== ENCOUNTER 2020-08-03 09:02 | Outpatient (CLI) | payer MEDICARE, OTHER ==
--- NOTE | 2020-08-03 11:39 | PET ---
EXAM: PET/CT HISTORY: Solitary pulmonary nodule; history of COVID pneumonia and recent hospitalization. History of recent b lood transfusion. TECHNIQUE: PET scanning with CT attenuation correction was performed from the base of the brain to the proximal thighs following the intravenous administration of 9.8 millicuries [id number]. COMPARISON: CTA of the thorax dated July 16, 2020, and June 29, 2016. CTA aortic dissection protocol dated Apr. FINDINGS: Biodistribution:There is some background skeletal muscle uptake involving the neck, shoulders and miranda st wall. Otherwise, the biodistribution for this examination is acceptable. Head and neck: There is appropriate background activity within the brain. There is a focus of hyperme tabolic uptake seen within the anterior left scalene musculature with a peak SUV activity of 3.43 and a mean activity of 2.87. No visible lymph node is evident on the CT images near this foci of hype rmetabolic uptake. Findings may reflect hypermetabolic uptake from the skeletal musculature. Thorax: The suspicious pulmonary nodule in the superior left lower lobe, previously seen on the CTA e xamination dated July 16, 2020, demonstrates hypermetabolic uptake with a peak activity of 8.33 and a mean activity of 7.24. There is hypermetabolic airspace consolidation in the posterior aspect o f the right lower lobe and right middle lobe suspicious for pneumonia. Findings are suspicious for pneumonia. Additionally, there is a moderate right-sided loculated hydropneumothorax. There are areas of peripheral subpleural reticulation involving both upper lobes as well as portions of the left lower lobe which likely reflects sequela of the patient's history of COVID pneumonia. The subpleural opacities do not demonstrate hypermetabolic uptake. There is a hypermetabolic AP window lymph node with a peak SUV activity of 3.9 and a mean activity of 3.1. There is a hypermetabolic subcarinal lymph node with a peak SUV activity of 3.79 and a mean activity of 3.34. Abdomen and pelvis: There is expected background activity within the GI and systems. No hypermetab olic mass, lymphadenopathy or ascites is present. Osseous structures and skin: There is mild hypermetabolic uptake seen diffusely throughout the axial and proximal appendicular skeleton. The pattern of uptake is most consistent with red marrow hyperplasia. No definite destructive hypermetabolic osteolytic or osteoblastic lesion is identified. There is postprocedural change of a posterior lateral interbody fusion of L3-L5 with a bone graft harvest site involving the left ilium. There is also postprocedural change of a right rotator cuff re pair and a left hip arthroplasty. IMPRESSION: Abnormal PET/CT. 1. Hypermetabolic superior segment left lower lobe pulmonary nodule is suspicious for malignancy. 2. Hypermetabolic lymph nodes within the AP window and subcarinal regions may be reactive in nature r elated to the patient's pneumonia. Malignant lymphadenopathy not excluded. Close CT follow-up is recommended. 2. Moderate right-sided hydropneumothorax. Dr. Weathers was contacted concerning this finding at 11:00 A M on August 03, 2020. Dr. Weathers requested that the patient return to [facility] ER for care. The patient was contacted concerning the findings at 11:05 AM on August 03, 2020. The patient was instr ucted to return to [facility] emergency room for further evaluation with the emergency room physicians and pulmonology. The patient was concerned that his would be unable to return th e patient back to the hospital. I made the recommendation that the patient call 911 and have ambulance return this patient back to the facility. Dr. Quiroga of the emergency room department w as contacted about this patient at 11:15 AM on August 03, 2020. 3. Foci of uptake within the left supraclavicular region appears to conform to the left anterior scal paulina muscle. There is also some mildly hypermetabolic uptake involving the rib intercostal musculature. Findings are likely related to skeletal muscle uptake from the patient coughing. This re gion can undergo CT follow-up for surveillance of any lymphadenopathy that may have developed in this region. 4. No evidence of hypermetabolic metastatic disease in the abdomen or pelvis. 5. Mild background hypermetabolic activity seen diffusely throughout the axial and proximal appendicu lar skeleton is likely related to red marrow hyperplasia given the patient's history of anemia and recent severe acute illness. CODE CR Transcribed Date/Time: 08/03/2020 12:03 PM
== END 2020-08-03 09:03 | disposition home or self-care (01) ==
LOC: PET 09:02
PROVIDERS: ATTEND Specialist
DX: R91.1 Solitary pulmonary nodule (principal); J93.83 Other pneumothorax
CPT/HCPCS: 78815; A9552